=== PATIENT | male | born 1930 | race Caucasian/White ===

== ENCOUNTER → 2018-01-15 | Outpatient (CLI) | payer BC ==
[2015-07-30 16:45] VITALS: BP 110/60
[~2018-01-15] MED LIST: DONE10TA61 PO; MEMA10TA PO; TAMS0.4C97 PO
--- NOTE | 2018-01-15 12:45 | CARD ---
MR#: [id number] Date of Study: 01/15/2018 Ordering Physician: AILYN CASIANO, Referring Physician: AILYN CASIANO, Tech: Moraima Funes APPROVED REPORT EXAM: Two-dimensional and M-mode echocardiogram with Doppler and color Doppler. Other Information Quality : AverageHR: 86bpm INDICATION Murmur Surgery/Intervention Pacemaker: 2D DIMENSIONS RVDd2.2 (2.9-3.5cm)Left Atrium(2D)3.3 (1.6-4.0cm) IVSd1.1 (0.7-1.1cm)Aortic Root(2D)3.4 (2.0-3.7cm) LVDd5.2 (3.9-5.9cm)LVOT Diameter2.1 (1.8-2.4cm) PWd0.9 (0.7-1.1cm)LVDs3.2 (2.5-4.0cm) FS (%) 37.8 %SV85.7 ml Aortic Valve AoV Peak Bashir.198.9cm/sAoV VTI41.2cm AO Peak GR.15.8mmHgLVOT Peak Bashir.95.4cm/s LVOT VTI 23.27cmAO Mean GR.9mmHg MIS (VMAX)1.87wp0BAC (VTI)1.95cm2 Mitral Valve MV E Dpvwmwzj71.8cm/sMV DECEL FRRO480kj MV A Dvewwdiz588.6cm/sMV GXW96fz E/A Ratio0.5MVA (PHT)2.23cm2 TDI E/Lateral E'9.3E/Medial E'11.2 Pulmonary Valve PV Peak Bkxyolfu145.6cm/sPV Peak Grad.9mmHg Tricuspid Valve TR P. Hhbfxjjn382ot/sRAP VQFBSEEL1emFy TR Peak Gr.34viGnXDIP70rnPe Pulmonary Vein S1 Kmwjrxgl17.2cm/sD2 Zcebgevz32.8cm/s LEFT VENTRICLE The left ventricle is normal size. There is borderline concentric left ventricular hypertrophy. The l eft ventricular systolic function is normal and the ejection fraction is within normal range. The Eje ction Fraction is 50-55%. There is normal LV segmental wall motion. Transmitral Doppler flow pattern is Grade I-abnormal relaxation pattern. RIGHT VENTRICLE The right ventricle is borderline dilated. There is normal right ventricular wall thickness. The righ t ventricular systolic function is normal. ATRIA The left atrium size is normal. The right atrium size is normal. The interatrial septum is intact wit h no evidence for an atrial septal defect or patent foramen ovale as noted on 2-D or Doppler imaging. AORTIC VALVE The aortic valve is calcified and displays decreased opening. Doppler and Color Flow revealed trace a ortic regurgitation. There is no significant aortic valvular stenosis. Calculated aortic valve area i s 2 cm2 with maximum pressure gradient of 16 mmHg and mean pressure gradient of 9 mmHg. MITRAL VALVE The mitral valve is mildly thickened. There is no mitral valve stenosis. Doppler and Color-flow revea led trace to mild mitral regurgitation. TRICUSPID VALVE The tricuspid valve is not well visualized. Doppler and Color Flow revealed trace tricuspid regurgita tion. PULMONIC VALVE The pulmonic valve is not well visualized. Doppler and Color Flow revealed trace pulmonic valvular re gurgitation. GREAT VESSELS The aortic root is normal in size. Normal pulmonary venous flow (Doppler). The IVC was not visualized . PERICARDIAL EFFUSION There is no evidence of significant pericardial effusion. Critical Notification Critical Value: No <Conclusion> The left ventricle is normal size. The left ventricular systolic function is normal and the ejection fraction is within normal range. The Ejection Fraction is 50-55%. There is borderline concentric left ventricular hypertrophy. There is no significant aortic valvular stenosis. Calculated aortic valve area is 2 cm2 with maximum pressure gradient of 16 mmHg and mean pressure gra dient of 9 mmHg. Doppler and Color Flow revealed trace aortic regurgitation. Doppler and Color-flow revealed trace to mild mitral regurgitation. Doppler and Color Flow revealed trace tricuspid regurgitation. Signed by : Isidro Carmona MD Electronically Approved : 01/15/2018 12:44:02
== END | disposition home or self-care (01) ==
LOC: ECHO 09:32
PROVIDERS: ATTEND Internal Medicine Cardiovascular Disease
DX: I44.2 Atrioventricular block, complete (principal); I34.0 Nonrheumatic mitral (valve) insufficiency; I51.7 Cardiomegaly
CPT/HCPCS: 93306

== ENCOUNTER 2018-04-17 09:54 | Inpatient (IN) | payer BC ==
[~2018-04-17] VITALS: Ht 170.2 cm; Wt 91.7 kg
[2018-04-17] MEDS ORDERED: IV NORMAL SALINE 1000ML BAG 1,000 ML IV SCH ×2 (10:12→10:30)
--- NOTE | 2018-04-17 10:16 | PHYS DOC ---
Past Medical History Past Medical History: Cancer, Heart Disease, Other Additional Past Medical Histor: colon ca- removedm, alzheimer's Past Surgical History: Colectomy, Pacemaker Alcohol Use: None Drug Use: None Adult General HPI HPI Patient is a 87 year old male who presents to the ED for evaluation. According to EMS, patient has been having decreased mental status, decreased eating and drinking, and episodes of combativeness, over the past 36-48 hours. He has a history of dementia, and at times will be oriented to self, according to family , but he does normally ambulate. Reportedly he had a fall about 36 hours ago, being found by his on the floor in the middle the night, but was helped out back to bed. Yesterday the patient's daughter states his mental status changes became more pronounced, and he was unable to get out of bed this morning. The patient himself is unable to provide any meaningful history. There are no known alleviating or exacerbating factors to the patient's symptoms. Review of Systems Review of Systems Unable to obtain review of systems secondary to dementia and altered mental status Current Medications Current Medications Current Medications Medications (Trade) Dose Ordered Sig/Sunita Start Time Stop Time Status Last Admin Dose Admin Ceftriaxone Sodium (Rocephin) 1 gm 1X ONCE 04/17/18 11:30 04/17/18 11:31 DC 04/17/18 11:46 1 GM Sodium Chloride 1,000 ml @ 100 mls/hr Q10H 04/17/18 10:30 04/17/18 20:29 Allergies Allergies Allergies Coded Allergies Type Severity Reaction Last Updated Verified No Known Drug Allergies 08/18/14 No Physical Exam Physical Exam PHYSICAL EXAM: CONSTITUTIONAL: Well developed, well nourished HEAD: normocephalic, atraumatic EENT: PERRL, EOMI. Conjunctivae normal color, sclerae non-icteric; dry mucous membranes. NECK: Supple, non-tender; no meningismus. LUNGS: Lungs CTA, breathing even and unlabored. Normal air movement. HEART: Regular rate and rhythm, no murmur CHEST: No deformity; non-tender ABDOMEN: The abdomen is soft, and non-tender, no masses or bruits. EXTREM: Normal ROM; no deformity, no calf tenderness. Normal pulses palpable in all extremities. There is no pedal edema. SKIN: No rash; no diaphoresis NEURO: Patient is awake, moves all extremities, does not answer questions normally, no obvious sensory or motor deficit. The patient does exhibit impaired cognition consistent with a history of dementia. BACK: No CVA TTP. Current Patient Data Vital Signs Vital Signs Date Time Temp Pulse Resp B/P (MAP) Pulse Ox O2 Delivery O2 Flow Rate FiO2 04/17/18 11:02 68 13 96 04/17/18 09:54 97.7 124/61 (82) Room Air 97.7 Lab Values Laboratory Tests Test 04/17/18 10:19 04/17/18 10:37 White Blood Count 9.7 x10^3/uL (4.0-11.0) Red Blood Count 4.78 x10^6/uL (4.30-5.70) Hemoglobin 14.9 g/dL (13.0-17.5) Hematocrit 44.6 % (39.0-53.0) Mean Corpuscular Volume 93 fL (79-100) Mean Corpuscular Hemoglobin 31 pg (25-35) Mean Corpuscular Hemoglobin Concent 33 g/dL (31-37) Red Cell Distribution Width 14.5 % (11.5-14.5) Platelet Count 245 x10^3/uL (140-400) Neutrophils (%) (Auto) 76 % (31-73) H Lymphocytes (%) (Auto) 14 % (24-48) L Monocytes (%) (Auto) 10 % (0-9) H Eosinophils (%) (Auto) 0 % (0-3) Basophils (%) (Auto) 0 % (0-3) Neutrophils # (Auto) 7.4 x10^3uL (1.8-7.7) Lymphocytes # (Auto) 1.3 x10^3/uL (1.0-4.8) Monocytes # (Auto) 0.9 x10^3/uL (0.0-1.1) Eosinophils # (Auto) 0.0 x10^3/uL (0.0-0.7) Basophils # (Auto) 0.0 x10^3/uL (0.0-0.2) Sodium Level 142 mmol/L (136-145) Potassium Level 4.3 mmol/L (3.5-5.1) Chloride Level 103 mmol/L (98-107) Carbon Dioxide Level 29 mmol/L (21-32) Anion Gap 10 (6-14) Blood Urea Nitrogen 33 mg/dL (8-26) H Creatinine 1.9 mg/dL (0.7-1.3) H Estimated GFR (Cockcroft-Gault) 33.7 BUN/Creatinine Ratio 17 (6-20) Glucose Level 131 mg/dL (70-99) H Calcium Level 9.9 mg/dL (8.5-10.1) Magnesium Level 2.5 mg/dL (1.8-2.4) H Total Bilirubin 0.8 mg/dL (0.2-1.0) Aspartate Amino Transferase (AST) 52 U/L (15-37) H Alanine Aminotransferase (ALT) 36 U/L (16-63) Alkaline Phosphatase 92 U/L (46-116) Troponin I Quantitative < 0.017 ng/mL (0.000-0.055) YX-Khl-Y-Type Natriuretic Peptide 1355 pg/mL (0-449) H Total Protein 8.7 g/dL (6.4-8.2) H Albumin 3.4 g/dL (3.4-5.0) Albumin/Globulin Ratio 0.6 (1.0-1.7) L Thyroid Stimulating Hormone (TSH) 4.703 uIU/mL (0.358-3.74) H Free Thyroxine 1.16 ng/dL (0.76-1.46) Urine Collection Type U cath Urine Color Yellow Urine Clarity Cloudy Urine pH 5.5 Urine Specific [place] 1.020 Urine Protein 30 mg/dL (NEG-TRACE) Urine Glucose (UA) Negative mg/dL (NEG) Urine Ketones (Stick) Negative mg/dL (NEG) Urine Blood Large (NEG) Urine Nitrite Negative (NEG) Urine Bilirubin Negative (NEG) Urine Urobilinogen Dipstick 0.2 mg/dL (0.2 mg/dL) Urine Leukocyte Esterase Large (NEG) Urine RBC 3-5 /HPF (0-2) Urine WBC >40 /HPF (0-4) Urine Squamous Epithelial Cells Few /LPF Urine Bacteria Many /HPF (0-FEW) Laboratory Tests 04/17/18 10:19 Laboratory Tests 04/17/18 10:19 EKG EKG [Normal sinus rhythm a rate of 64 beats for minute, normal axis, nonspecific intraventricular conduction delay with an incomplete left bundle branch block pattern without acute ischemic ST/T changes. Nonspecific changes are present] Radiology/Procedures Radiology/Procedures [PROCEDURE: PORTABLE CHEST 1V EXAM: CHEST 1 VIEW History: Altered mental status COMPARISON: 07/30/2015 TECHNIQUE: Single portable radiograph of the chest FINDINGS: The cardiac silhouette is unremarkable. The lungs are clear bilaterally. The costophrenic sulci are clear and well demarcated. Left sided cardiac pacer is identified. IMPRESSION: No radiographic evidence of an acute cardiopulmonary process. ] PROCEDURE: CT HEAD WO CONTRAST CT HEAD INDICATION: Altered mental status COMPARISON: None Available. Exposure: One or more of the following individualized dose reduction techniques were utilized for this examination: 1. Automated exposure control 2. Adjustment of the mA and/or kV according to patient size 3. Use of iterative reconstruction technique TECHNIQUE: 5 mm contiguous axial images were obtained from the skull base to the vertex in both bone and soft tissue algorithm. FINDINGS: Moderate bilateral periventricular white matter hypodensities likely chronic small vessel ischemic disease. No evidence of acute intracranial hemorrhage. No extra-axial fluid collections. No mass effect or midline shift. Ventricular size is appropriate. Basal cisterns are patent. No fractures identified.Altamirano-white differentiation is preserved.Globes and orbits are within normal limits. Complete opacification of the right mastoid air cells. IMPRESSION: 1. No acute intracranial findings. 2. Complete opacification of the right mastoid air cells could be fluid in the mastoid air cells are due to otitis media or noncoalescent mastoiditis. Course & Med Decision Making Course & Med Decision Making Pertinent Labs and Imaging studies reviewed. (See chart for details) [12:00 PM:The patient's condition remains stable. I spoke with the patient's PCP, who accepted the patient to the hospital for further evaluation and treatment.] Dragon Disclaimer Dragon Disclaimer This electronic medical record was generated, in whole or in part, using a voice recognition dictation system. Departure Departure Impression: Primary Impression: Altered mental status Additional Impressions: Dehydration UTI (urinary tract infection) Disposition: ADMITTED INPATIENT Admitting Physician: Swapnil Rosales Condition: STABLE Referrals: SWAPNIL ROSALES MD (PCP) Problem Qualifiers LEILANI VASQUEZ MD Apr 17, 2018 10:16
[2018-04-17 10:40] LABS: BASO % 0 % (0-3); EOS % 0 % (0-3); HEMATOCRIT 44.6 % (39.0-53.0); HEMOGLOBIN 14.9 g/dL (13.0-17.5); LYMPH # 1.3 x10^3/uL (1.0-4.8); LYMPH % 14 % (24-48); MEAN CORPUSCULAR HEMOGLOBIN 31 pg (25-35); MEAN CORPUSCULAR HGB CONC 33 g/dL (31-37); MEAN CORPUSCULAR VOLUME 93 fL (79-100); MONO # 0.9 x10^3/uL (0.0-1.1); MONO % 10 % (0-9); NEUT # 7.4 x10^3uL (1.8-7.7); NEUT % 76 % (31-73); PLATELET COUNT 245 x10^3/uL (140-400); RED BLOOD COUNT 4.78 x10^6/uL (4.30-5.70); RED CELL DISTRIBUTION WIDTH 14.5 % (11.5-14.5); WHITE BLOOD COUNT 9.7 x10^3/uL (4.0-11.0)
--- NOTE | 2018-04-17 10:43 | RAD ---
EXAM: CHEST 1 VIEW History: Altered mental status COMPARISON: 07/30/2015 TECHNIQUE: Single portable radiograph of the chest FINDINGS: The cardiac silhouette is unremarkable. The lungs are clear bilaterally. The costophrenic sulci are clear and well demarcated. Left sided cardiac pacer is identified. IMPRESSION: No radiographic evidence of an acute cardiopulmonary process. Electronically signed by: Italo Conteh MD (04/17/2018 10:38 AM) [facility]
[2018-04-17 10:44] LABS: CALCIUM 9.9 mg/dL (8.5-10.1); CREATININE 1.9 mg/dL (0.7-1.3); GFR 33.7; POTASSIUM 4.3 mmol/L (3.5-5.1)
[2018-04-17 10:48] LABS: BILIRUBIN,URINE NEGATIVE (NEG); CLARITY,URINE CLOUDY; COLOR,URINE YELLOW; NITRITE,URINE NEGATIVE (NEG); PH,URINE 5.5; PROTEIN,URINE 30 mg/dL (NEG-TRACE); UROBILINOGEN,URINE 0.2 mg/dL (0.2 mg/dL)
[2018-04-17 10:49] LABS: ALBUMIN 3.4 g/dL (3.4-5.0); ALBUMIN/GLOBULIN RATIO 0.6 (1.0-1.7); MAGNESIUM 2.5 mg/dL (1.8-2.4); TOTAL BILIRUBIN 0.8 mg/dL (0.2-1.0); TOTAL PROTEIN 8.7 g/dL (6.4-8.2)
[2018-04-17 10:57] LABS: FREE T4 1.16 ng/dL (0.76-1.46); THYROID STIM HORMONE (TSH) 4.703 uIU/mL (0.358-3.74)
--- NOTE | 2018-04-17 11:02 | RAD ---
CT HEAD INDICATION: Altered mental status COMPARISON: None Available. Exposure: One or more of the following individualized dose reduction techniques were utilized for this examination: 1. Automated exposure control 2. Adjustment of the mA and/or kV according to patient size 3. Use of iterative reconstruction technique TECHNIQUE: 5 mm contiguous axial images were obtained from the skull base to the vertex in both bone and soft tissue algorithm. FINDINGS: Moderate bilateral periventricular white matter hypodensities likely chronic small vessel ischemic disease. No evidence of acute intracranial hemorrhage. No extra-axial fluid collections. No mass effect or midline shift. Ventricular size is appropriate. Basal cisterns are patent. No fractures identified.Altamirano-white differentiation is preserved.Globes and orbits are within normal limits. Complete opacification of the right mastoid air cells. IMPRESSION: 1. No acute intracranial findings. 2. Complete opacification of the right mastoid air cells could be fluid in the mastoid air cells are due to otitis media or noncoalescent mastoiditis. Electronically signed by: Italo Conteh MD (04/17/2018 10:57 AM) [facility]
[2018-04-17 11:04] LABS: SQUAMOUS EPITHELIAL CELL,UR FEW /LPF
[2018-04-17 11:05] LABS: BACTERIA,URINE MANY /HPF (0-FEW); WBC,URINE >40 /HPF (0-4)
--- NOTE | 2018-04-17 11:05 | EKG ---
[facility] [address] [place] [address] Test Date: 2018-04-17 Test Time: 10:15:25 Pat Name: CAROL VAN Department: Room: Gender: M Criminal Profiler: : [id number] Requested By: LEILANI VASQUEZ Order Number: [id number] Reading MD: Davy Yost MD Measurements Intervals [place] Rate: 64 P: 63 MN: 182 QRS: 30 QRSD: 128 T: 5 QT: 424 QTc: 442 Interpretive Statements SINUS RHYTHM LBBB CANNOT RULE OUT SEPTAL INFARCT Electronically Signed On 04-18-2018 9:16:36 [employer] by Davy Yost MD
[2018-04-17] MEDS ORDERED: cefTRIAXone IV Push 1 GM VIAL. IVP ONE (11:30)
[2018-04-17] MEDS ORDERED: POTASSIUM CL 20MEQ D5-0.45NACL 1,000 ML IV ONE (12:15)
[2018-04-17 14:07] VITALS: BP 113/55
[2018-04-17] MEDS ORDERED: HALOPERIDOL 2 MG TABLET. PO PRN (17:45)
[2018-04-17] MEDS: ENOXAPARIN 30 MG/0.3 ML SYRINGE. SQ SCH (18:00)
[2018-04-17] MEDS ORDERED: cefTRIAXone IV Push 1 GM VIAL. IVP SCH ×2 (18:00)
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
[2018-04-17 19:00] VITALS: BP 108/59
[2018-04-17] MEDS: TAMSULOSIN 0.4 MG CAP.ER.24H. PO SCH (20:39)
[2018-04-17] MEDS: MEMANTINE 10 MG TABLET. PO SCH (20:39)
[2018-04-17] MEDS: DONEPEZIL HCL 10 MG TABLET. PO SCH (20:39)
[2018-04-17] MEDS: LACTOBACILLUS RHAMNOSUS GG 1 CAPSULE. PO SCH (20:39)
[2018-04-17 22:49] VITALS: BP 114/55
[2018-04-18 03:41] VITALS: BP 123/48
[2018-04-18 05:05] LABS: BASO % 0 % (0-3); EOS # 0.2 x10^3/uL (0.0-0.7); EOS % 2 % (0-3); HEMATOCRIT 37.4 % (39.0-53.0); HEMOGLOBIN 12.5 g/dL (13.0-17.5); LYMPH # 2.4 x10^3/uL (1.0-4.8); LYMPH % 26 % (24-48); MEAN CORPUSCULAR HEMOGLOBIN 31 pg (25-35); MEAN CORPUSCULAR HGB CONC 34 g/dL (31-37); MEAN CORPUSCULAR VOLUME 93 fL (79-100); MONO # 1.3 x10^3/uL (0.0-1.1); MONO % 15 % (0-9); NEUT # 5.2 x10^3uL (1.8-7.7); NEUT % 57 % (31-73); PLATELET COUNT 214 x10^3/uL (140-400); RED BLOOD COUNT 4.04 x10^6/uL (4.30-5.70); RED CELL DISTRIBUTION WIDTH 13.9 % (11.5-14.5); WHITE BLOOD COUNT 9.1 x10^3/uL (4.0-11.0)
[2018-04-18 05:32] LABS: CREATININE 1.5 mg/dL (0.7-1.3); GFR 44.3; POTASSIUM 3.7 mmol/L (3.5-5.1)
[2018-04-18] MEDS: LEVOTHYROXINE 25 MCG TABLET. PO SCH (06:27)
[2018-04-18] MEDS ORDERED: IV NORMAL SALINE 1000ML BAG 1,000 ML IV ONE (07:45)
[2018-04-18] MEDS: MEMANTINE 10 MG TABLET. PO SCH ×2 (08:20→20:56)
[2018-04-18] MEDS: DONEPEZIL HCL 10 MG TABLET. PO SCH ×2 (08:20→20:57)
[2018-04-18] MEDS: LACTOBACILLUS RHAMNOSUS GG 1 CAPSULE. PO SCH ×3 (08:20→20:57)
[2018-04-18] MEDS: FINASTERIDE 5 MG TABLET. PO SCH (08:20)
[2018-04-18 10:58] VITALS: BP 117/58
[2018-04-18] MEDS ORDERED: cefTRIAXone IV Push 1 GM VIAL. IVP SCH (12:00)
--- NOTE | 2018-04-18 12:59 | HP ---
ADMIT DATE: 04/17/2018 CHIEF COMPLAINT: Mental status changes. HISTORY OF PRESENT ILLNESS AND HOSPITAL COURSE: This patient is an 87-year-old male with known Alzheimer type dementia, became increasingly agitated at home and combative. EMS was called and the patient was brought to Emergency Room for evaluation. He was found to have a UTI and evidence of dehydration. The patient was unable to care for himself and due to the severity of illness, he was admitted for further evaluation, PT and OT modalities, IV fluids and IV antibiotics. PAST MEDICAL HISTORY: Significant for: 1. Alzheimer type dementia. 2. Hypothyroidism. 3. Sick sinus syndrome with pacer. 4. Benign prostatic hypertrophy. PAST SURGICAL HISTORY: Significant for: 1. Partial colectomy. 2. Pacemaker insertion. FAMILY HISTORY: Noncontributory. SOCIAL HISTORY: The patient does not smoke or use alcohol. He lives with his who has been the caregiver and who has recently had a CVA decreasing her abilities to care for the patient. REVIEW OF SYSTEMS: The patient has lost weight, but has not had any cough, congestion, fever, vomiting or diarrhea. The patient denies any pain. The patient is alert, but not oriented to time or place. The patient mumbles and is unable to assist in care. PHYSICAL EXAMINATION: GENERAL: This is a well-nourished, well-developed male, in no apparent distress. He is alert, but not oriented to time or place. HEENT: Benign. NECK: Supple. CARDIAC: Regular rate and rhythm. LUNGS: Clear. ABDOMEN: Soft, although the patient exhibits some evidence of tenderness and guarding. Positive bowel sounds were noted. EXTREMITIES: 2+ pulse without significant edema. NEUROLOGIC: Showed no unilateral findings. MENTAL STATUS EXAMINATION: Again, he is somewhat combative and resistant to care. SIGNIFICANT LABORATORY DATA: Reveals BUN 33 and a creatinine of 1.9 with baseline creatinine of 1.5. No elevated white count was noted. Urine did show large blood and leukocytes, but negative nitrites. Culture was reflexed. TSH was elevated to 4.7, but free T4 was normal at 1.6. ASSESSMENT: 1. Metabolic encephalopathy. 2. Suspected sepsis. 3. Urinary tract infection. 4. Alzheimer type dementia. 5. Acute on chronic renal failure. 6. Hypothyroidism. PLAN: To proceed with PT and OT modalities, IV hydration and IV switching to p.o. antibiotics. We will consider [facility] consult once the patient is medically stable and proceed with SNU care or alf placement pending the patient's disposition. DANILO PAPPAS MD DR: MALLORY/sandra JOB#: [id number] / [id number]
[2018-04-18 15:06] VITALS: BP 147/54
--- NOTE | 2018-04-18 16:04 | NUR ---
SW consulted for [facility] psych evaluation. Chart reviewed and DW RN. Pt currently being treated for UTI. SW spoke with pt's son, Jose D via phone and he reported pt is usually fine at home and only gets upset if 'he is forced to do something he doesn't want to do'. Pt lives at home with spouse and gets home care services at home. SW discussed about [facility] psych evaluation with son. Pt has declined to participate with PT/OT today but has been stand by assist with ambulation. YONATAN requested RN to document behaviors in EMR to assist with [facility]-psych evaluation. Referral to [facility] psych faxed to [facility] but will need to be cleared of UTI to qualify for evaluation. YONATAN left a voice mail to Nannette at [facility] luly psych. YONATAN will continue to follow.
[2018-04-18] MEDS: ENOXAPARIN 30 MG/0.3 ML SYRINGE. SQ SCH (18:00)
[2018-04-18 20:00] VITALS: BP 137/58
[2018-04-18] MEDS: TAMSULOSIN 0.4 MG CAP.ER.24H. PO SCH (20:57)
[2018-04-18 23:00] VITALS: BP 135/66
--- NOTE | 2018-04-18 23:37 | RAD ---
Ultrasound the abdomen complete. HISTORY: Altered mental status, combative, unable to give history Ultrasound was used to evaluate the abdomen. Pancreas is obscured. Aorta and vena cava cava are poorly visualized. Liver is mildly heterogeneous but poorly visualized, an obvious liver lesion was not identified. Right kidney was 10.4 cm in length without hydronephrosis. There is a gallstone in the gallbladder. The gallbladder wall was not thickened. Common duct was normal measuring 3 mm. Spleen was not enlarged. Left kidney was 11.4 cm in length without hydronephrosis. IMPRESSION: 1. Limited study. 2. Cholelithiasis. Electronically signed by: Donaldo Cortés MD (04/18/2018 11:33 PM) [facility]
[2018-04-19 02:27] VITALS: BP 122/60
--- NOTE | 2018-04-19 06:30 | NUR ---
Patient up to bathroom with assistance at this time. Patient had been able to be redirected throughout shift until this encounter to bathroom. Patient became very agitated with staff, became verbally inappropriate. Aide and this nurse attempted to redirect patient to best of our ability, patient still very agitated. Son Jose D called, patient refused to speak to him, son offered to come up to hospital to help calm him down. Patient attempted to leave room, took three nurses to redirect patient back to bed. Patient not allowing anyone near him. This nurse called pharmacy to get Haldol up to floor. Haldol received. Patient refusing to take medication. Son in room attempting to calm patient down. Patient refusing to take medication. Patient in chair with staff in room. Will continue to monitor patient.
[2018-04-19] MEDS ORDERED: HALOPERIDOL 2 MG/ML ORAL.CONC. PO PRN (06:36)
[2018-04-19 07:36] VITALS: BP 135/68
[2018-04-19] MEDS: FINASTERIDE 5 MG TABLET. PO SCH (07:54)
[2018-04-19] MEDS: MEMANTINE 10 MG TABLET. PO SCH ×2 (07:54→21:00)
[2018-04-19] MEDS: LEVOTHYROXINE 25 MCG TABLET. PO SCH (07:54)
[2018-04-19] MEDS: LACTOBACILLUS RHAMNOSUS GG 1 CAPSULE. PO SCH ×2 (07:54→21:00)
[2018-04-19] MEDS: DONEPEZIL HCL 10 MG TABLET. PO SCH ×2 (07:56→21:00)
[2018-04-19 11:10] VITALS: BP 110/50
--- NOTE | 2018-04-19 11:13 | NUR ---
SW following pt. Spoke with Nannette at [facility] and she reported pt has $4400 deductible that is not met yet. This deductible might be met with this hospital admission. Nannette reported UTI dx will not affect derek psych eval. YONATAN faxed labs and more clinicals to [facility]. They are able to accept pt as long as family can bring DPOA paper. Spoke with pt's daughter who reported she will bring DPOA paper around 1200. Nannette also reported pt's date was coming as invalid when she run his insurance benefits. Daughter reported [employer] has pt's date as 1930. YONATAN notified Nannette at [facility] regarding date. YONATAN will continue to follow. Addendum: 04/19/18 at 1402 by DIANNA TAM YONATAN following. RN spoke with pt's daughter who reported they will be at [facility] 'hopefully with in an hour'. YONATAN phoned and faxed orders to [facility] derek-psych. Will continue to follow.
[2018-04-19] MEDS ORDERED: FINA5TAB4 PO (13:04)
[2018-04-19] MEDS ORDERED: LEVO250T7 PO (13:04)
[2018-04-19] MEDS ORDERED: LEVO25TA55 PO (13:04)
--- NOTE | 2018-04-19 13:11 | DISCH ---
DISCHARGE DISCHARGE INFORMATION: FINAL DIAGNOSIS Problems Medical Problems: (1) Altered mental status Status: Acute (2) Dehydration Status: Acute (3) UTI (urinary tract infection) Status: Acute CONDITION ON DISCHARGE: Stable CODE STATUS: Code Status: Full POST DISCHARGE ORDERS: ACTIVITY ORDERS: No restrictions, Other, see below WEIGHT BEARING STATUS: No restrictions, Other, see below DIET AFTER DISCHARGE: Regular WOUND/INCISION CARE: Other, see below TREATMENT/EQUIPMENT ORDERS: Physical Therapy For: Evalulation/Treatment Occupational Therapy For: Evaluation/Treatment DISCHARGE MEDICATIONS: Home Meds Active Scripts Finasteride (FINASTERIDE) 5 Mg Tablet, 5 MG PO DAILY for bph for 30 Days, #30 TAB Prov:DANILO PAPPAS MD 04/19/18 Levothyroxine Sodium (SYNTHROID) 25 Mcg Tablet, 25 MCG PO DAILY06 for low thyroid for 30 Days, #30 TAB Prov:DANILO PAPPAS MD 04/19/18 Levofloxacin (LEVOFLOXACIN) 250 Mg Tablet, 250 MG PO DAILY06 for uti for 7 Days , #7 TAB Prov:DANILO PAPPAS MD 04/19/18 Tamsulosin Hcl (FLOMAX) 0.4 Mg Cap.er.24h, 0.4 MG PO QHS, #30 TAB Prov:DANILO PAPPAS MD 08/20/14 Reported Medications Donepezil Hcl (ARICEPT) 10 Mg Tablet, 1 TAB PO BID, #30 TAB 5 Refills 08/18/14 Memantine Hcl (NAMENDA) 10 Mg Tablet, 1 TAB PO BID, #180 TAB 1 Refill 08/18/14 DANILO PAPPAS MD Apr 19, 2018 13:11
--- NOTE | 2018-04-19 13:26 | DS ---
DATE OF DISCHARGE: 04/19/2018 ADMITTING DIAGNOSES: 1. Metabolic encephalopathy. 2. Urinary tract infection. 3. Alzheimer's type dementia with psychotic features. 4. Acute on chronic renal failure. 5. Suspected sepsis. 6. Hypothyroidism. DISMISSAL DIAGNOSES: 1. Metabolic encephalopathy. 2. Urinary tract infection. 3. Alzheimer's type dementia with psychotic features. 4. Acute on chronic renal failure. 5. Suspected sepsis. 6. Hypothyroidism. HISTORY OF PRESENT ILLNESS AND HOSPITAL COURSE: This patient is an 87-year-old male who came in with altered mental status and progressive Alzheimer's type dementia. He was difficult to control at home and agitated and brought to the hospital where he was found to have a UTI and evidence of dehydration. He was treated with IV fluids initially, but refused further IV hydration and IV access due to combativeness. He was started on p.o. antibiotics and stabilized to the point where he was able to tolerate diet and be back to baseline, but continued to have agitation and poor impulse control. Due to these factors, Geriatric Psych was consulted and the patient was accepted [facility] admission. DISCHARGE MEDICATIONS: The patient will be discharged to [facility] on the following medications: Levaquin 250 mg daily for 1 week, levothyroxine 25 mcg daily, finasteride 5 mg daily, Aricept 10 mg daily, Namenda 10 mg b.i.d. and tamsulosin 0.4 at bedtime. DANILO PAPPAS MD DR: MALLORY/sandra JOB#: [id number] / [id number]
--- NOTE | 2018-04-19 14:23 | NUR ---
SW following pt. Spoke with pt's son and informed him there is dc order on chart and we need DPOA paper for [facility] psych placement. Pt's son reported he will try to bring paperwork to hospital or try to fax to YONATAN. ROXANA Paulson to check if we have paperwork on file.
[2018-04-19 15:00] VITALS: BP 125/67
--- NOTE | 2018-04-19 15:00 | NUR ---
SW following. YONATAN faxed DPOA paper to [facility]
--- NOTE | 2018-04-19 15:56 | NUR ---
YONATAN spoke with Nannette at [facility] who reported pt's DPOA paper states it can only be effective after pt's disability is established by two Physicians. RN to notify Physician regarding request. These statements can be written as a progress note in EMR (Pt is incapable making decisions and I agree with Power of payroll services analyst to be effective) and can be faxed to [facility] derek psych, fax: [phone]. [facility] is able to admit pt tomorrow if these papers are faxed to them. Report number, phone: [phone]. Pt's is also the appointed DPOA once it becomes effective. Discussed with pt's daughter, son and pt's in room regarding plan and they verbalized understanding. YONATAN also has discussed deductibles with pt's daughter. Copy of DPOA paper placed in chart. Packet on chart. Discussed with RN.
--- NOTE | 2018-04-19 16:05 | PDOC ---
Provider Note Provider Note To whom it may concern: Mr. Hernan Allen has been under my care for over 10 years. He is no longer able to manage his own affairs due to progressive Alzheimer's dementia and will require a DPOA for medical and financial decision-making. Please make DPOA effective immediately. Sincerely, DANILO Cueva M.D., MD Apr 19, 2018 16:04
[2018-04-19] MEDS: ENOXAPARIN 30 MG/0.3 ML SYRINGE. SQ SCH (17:32)
[2018-04-19 19:00] VITALS: BP 141/82
[2018-04-19] MEDS: TAMSULOSIN 0.4 MG CAP.ER.24H. PO SCH (21:00)
[2018-04-19] MEDS: MELATONIN PO SCH (22:35)
[2018-04-19 23:00] VITALS: BP 104/63
[2018-04-19] MEDS: HALOPERIDOL LACTATE 5 MG/ML VIAL. IM PRN (23:21)
[2018-04-20 07:00] VITALS: BP 100/50
--- NOTE | 2018-04-20 09:51 | PDOC ---
PROGRESS NOTES Subjective sleeping, sedated, comfortable, sitter present, no new issues Objective Afebrile General: comfortable Heart: RRR Lungs: CTA Abd: soft Ext: no cyanosis Vital Signs Vital Signs Date Time Temp Pulse Resp B/P (MAP) Pulse Ox O2 Delivery O2 Flow Rate FiO2 04/20/18 07:00 77 16 100/50 (67) Room Air 04/19/18 23:00 95 04/19/18 15:00 97.8 97.8 I & O Intake and Output 04/20/18 07:01 # Voids 6 # Bowel Movements 1 Assessment and Plan Problems Medical Problems: (1) Altered mental status Status: Acute (2) Dehydration Status: Acute (3) UTI (urinary tract infection) Status: Acute Mr. Hernan Allen has been a patient of Dr. Rosales's and myself medical practice for over 10 years. He is no longer able to manage his own affairs due to progressive Alzheimer's dementia and immediately needs a DPOA for medical and financial decision-making. Nutrition Consultation Dietary Evaluation: Recommendations by RD: Increase Calorie Intake, Protein supplementation, Add supplement feedings Comments: Added chocolate Ensure pudding TID due to poor P.O intake, in order to increase calorie and protein intake. Expected Outcomes/Goals: Continue Cardiac diet P.O. intake >75% Malnutrition Findings: Food and Nutrition Intake (Sev: <50% est energy req 5days Weight Status: Obese Yessy ALCARAZ MD Apr 20, 2018 09:51
[2018-04-20 11:00] VITALS: BP 130/55
[2018-04-20] MEDS: MEMANTINE 10 MG TABLET. PO SCH ×2 (12:06→21:02)
[2018-04-20] MEDS: FINASTERIDE 5 MG TABLET. PO SCH (12:06)
[2018-04-20] MEDS: DONEPEZIL HCL 10 MG TABLET. PO SCH ×2 (12:06→21:10)
[2018-04-20] MEDS: LACTOBACILLUS RHAMNOSUS GG 1 CAPSULE. PO SCH ×2 (12:06→21:02)
[2018-04-20] MEDS: LEVOTHYROXINE 25 MCG TABLET. PO SCH (12:07)
[2018-04-20 15:00] VITALS: BP 100/47
--- NOTE | 2018-04-20 15:52 | NUR ---
[place] [facility] [place] [facility], as per YONATAN two doctors documented in EMR the incapability of patient to make decisions, I faxed documentation as well. Per Dora charge nurse at the [facility], documentation needs to either be typed or handwritten with 's signatures, one letter from each physician. They can not accept him until they receive them, will follow up with during rounds in the AM.
[2018-04-20] MEDS: ENOXAPARIN 30 MG/0.3 ML SYRINGE. SQ SCH (18:00)
[2018-04-20 19:00] VITALS: BP 97/53
[2018-04-20] MEDS: MELATONIN PO SCH (21:04)
[2018-04-20] MEDS: TAMSULOSIN 0.4 MG CAP.ER.24H. PO SCH (21:10)
[2018-04-20 23:00] VITALS: BP 104/48
[2018-04-21 03:00] VITALS: BP 123/52
[2018-04-21 07:02] VITALS: BP 144/65
[2018-04-21] MEDS: FINASTERIDE 5 MG TABLET. PO SCH (10:35)
[2018-04-21] MEDS: LEVOTHYROXINE 25 MCG TABLET. PO SCH (10:35)
[2018-04-21] MEDS: MEMANTINE 10 MG TABLET. PO SCH ×2 (10:35→19:56)
[2018-04-21] MEDS: DONEPEZIL HCL 10 MG TABLET. PO SCH ×2 (10:35→19:56)
[2018-04-21] MEDS: LACTOBACILLUS RHAMNOSUS GG 1 CAPSULE. PO SCH ×2 (10:36→19:56)
[2018-04-21 11:52] VITALS: BP 104/60
--- NOTE | 2018-04-21 13:21 | PDOC ---
PROGRESS NOTES Subjective He needs written note with original signature for transfer, no new issues, appetite poor but drinking some supplements, still does not like being touched, was able to ambulate some this am but mostly sleeps Objective Afebrile General: easily aroused Heart: RRR Lungs: diminished but clear Abd: soft, non distended Ext: no cyanosis, skin with good turgor, warm Vital Signs Vital Signs Date Time Temp Pulse Resp B/P (MAP) Pulse Ox O2 Delivery O2 Flow Rate FiO2 04/21/18 11:52 98.0 71 17 104/60 (75) 99 Room Air 98.0 I & O Intake and Output 04/21/18 07:01 Intake Total 1205 ml Balance 1205 ml Intake Oral 1205 ml # Voids 6 # Bowel Movements 3 Assessment and Plan Problems Medical Problems: (1) Altered mental status Status: Acute (2) Dehydration Status: Acute (3) UTI (urinary tract infection) Status: Acute Note written and signed Nutrition Consultation Dietary Evaluation: Recommendations by RD: Increase Calorie Intake, Protein supplementation, Add supplement feedings Comments: Added chocolate Ensure pudding TID due to poor P.O intake, in order to increase calorie and protein intake. Expected Outcomes/Goals: Continue Cardiac diet P.O. intake >75% Malnutrition Findings: Food and Nutrition Intake (Sev: <50% est energy req 5days Weight Status: Obese Yessy ALCARAZ MD Apr 21, 2018 13:21
[2018-04-21 15:40] VITALS: BP 118/50
[2018-04-21] MEDS: ENOXAPARIN 30 MG/0.3 ML SYRINGE. SQ SCH (17:20)
[2018-04-21 19:00] VITALS: BP 108/66
[2018-04-21] MEDS: MELATONIN PO SCH (19:56)
[2018-04-21] MEDS: TAMSULOSIN 0.4 MG CAP.ER.24H. PO SCH (19:56)
[2018-04-21 23:00] VITALS: BP 143/70
[2018-04-22] MEDS: HALOPERIDOL LACTATE 5 MG/ML VIAL. IM PRN (00:18)
[2018-04-22] MEDS: LEVOTHYROXINE 25 MCG TABLET. PO SCH (06:00)
[2018-04-22 07:00] VITALS: BP 117/44
--- NOTE | 2018-04-22 08:22 | NUR ---
YONATAN following pt. YONATAN left a message for Nannette at [facility] requesting a call back. FERNIE MUNOZ.
[2018-04-22] MEDS: DONEPEZIL HCL 10 MG TABLET. PO SCH (09:00)
[2018-04-22] MEDS: LACTOBACILLUS RHAMNOSUS GG 1 CAPSULE. PO SCH (09:00)
[2018-04-22] MEDS: MEMANTINE 10 MG TABLET. PO SCH (09:00)
[2018-04-22] MEDS: FINASTERIDE 5 MG TABLET. PO SCH (09:00)
--- NOTE | 2018-04-22 10:13 | NUR ---
YONATAN following pt. Spoke with Nannette who reported EMR documentation regarding pt's incapability would be sufficient but she would verify that as well. YONATAN faxed Documentation and signed Rx by Dr. Givens requesting for DPOA to be effective to [facility]. Awaiting for Rx from pt's PCP but Nannette reported they are able to admit pt today. Nannette had gone over the consent forms with pt's via phone. Pt will transfer to [facility] via [facility] at 1200. SW notified pt's daughter and son via phone and they are agreeable. They reported they will notify pt's regarding plan. Packet on Chart. FERNIE MUNOZ.
--- NOTE | 2018-04-22 13:21 | NUR ---
Discharge Note: [facility] Discharge instructions and discharge home medications reviewed with Other facility and a copy given. All questions have been answered and understanding verbalized. Discontinued lines and drains: No IV was present on discharge, skin was intact. Patient discharged to [facility] via EMS
== END 2018-04-22 13:00 | DRG 871 ==
LOC: ER 09:54 → 6 SOUTH 11:25
PROVIDERS: ADMIT Family Medicine; ATTEND Family Medicine
DX: A41.9 Sepsis, unspecified organism (principal); G93.41 Metabolic encephalopathy; N17.9 Acute kidney failure, unspecified; N39.0 Urinary tract infection, site not specified; E46 Unspecified protein-calorie malnutrition; E86.0 Dehydration; F02.80 Dementia in other diseases classified elsewhere, unspecified severity, without behavioral disturbance, psychotic disturbance, mood disturbance, and anxiety; G30.9 Alzheimer's disease, unspecified; N40.0 Benign prostatic hyperplasia without lower urinary tract symptoms; N18.9 Chronic kidney disease, unspecified; E03.9 Hypothyroidism, unspecified; E66.9 Obesity, unspecified; Z85.038 Personal history of other malignant neoplasm of large intestine; Z86.73 Personal history of transient ischemic attack (TIA), and cerebral infarction without residual deficits; Z95.0 Presence of cardiac pacemaker; Z68.31 Body mass index [BMI] 31.0-31.9, adult; Z90.49 Acquired absence of other specified parts of digestive tract
CPT/HCPCS: 36415; 51701; 70450; 71045; 76700; 80048; 80053; 81001; 83735; 83880; 84439; 84443; 84484; 85025; 87086; 87186; 93005; 96361; 96365; 96375; J0696; J1630; J7030; 99285-25

== ENCOUNTER 2018-05-14 03:29 | Emergency (ER) | payer BC ==
[~2018-05-14] VITALS: Ht 177.8 cm; Wt 91.6 kg
[~2018-05-14 03:29] MED LIST changes: +FINA5TAB4 PO; +LEVO250T7 PO; +LEVO25TA55 PO
[2018-05-14 04:05] LABS: BASO % 0 % (0-3); EOS % 0 % (0-3); HEMATOCRIT 39.9 % (39.0-53.0); HEMOGLOBIN 13.4 g/dL (13.0-17.5); LYMPH % 18 % (24-48); MEAN CORPUSCULAR HEMOGLOBIN 30 pg (25-35); MEAN CORPUSCULAR HGB CONC 33 g/dL (31-37); MEAN CORPUSCULAR VOLUME 90 fL (79-100); MONO # 0.4 x10^3/uL (0.0-1.1); MONO % 6 % (0-9); NEUT # 4.3 x10^3uL (1.8-7.7); NEUT % 76 % (31-73); PLATELET COUNT 143 x10^3/uL (140-400); RED BLOOD COUNT 4.42 x10^6/uL (4.30-5.70); RED CELL DISTRIBUTION WIDTH 13.6 % (11.5-14.5); WHITE BLOOD COUNT 5.7 x10^3/uL (4.0-11.0)
[2018-05-14 04:16] LABS: CALCIUM 9.1 mg/dL (8.5-10.1); CREATININE 1.9 mg/dL (0.7-1.3); GFR 33.7; POTASSIUM 4.2 mmol/L (3.5-5.1)
[2018-05-14 04:22] LABS: ALBUMIN 2.6 g/dL (3.4-5.0); ALBUMIN/GLOBULIN RATIO 0.7 (1.0-1.7); TOTAL BILIRUBIN 0.6 mg/dL (0.2-1.0); TOTAL PROTEIN 6.6 g/dL (6.4-8.2)
[2018-05-14 04:30] LABS: CREATINE KINASE 27 U/L (39-308)
[2018-05-14] MEDS ORDERED: IV NORMAL SALINE 1000ML BAG 1,000 ML IV ONE (04:30)
--- NOTE | 2018-05-14 04:39 | PHYS DOC ---
Past Medical History Past Medical History: Cancer, Dementia, Heart Disease, Other Additional Past Medical Histor: colon ca- removedm, alzheimer's Past Medical History Limited due to history of dementia Past Surgical History: Colectomy, Pacemaker Past Surgical History Limited due to history of dementia Alcohol Use: None Drug Use: None Social History Limited due to history of dementia Adult General Chief Complaint Chief Complaint: MECHANICAL FALL HPI HPI Patient is a 87 male who presents due to fall 1 hour ago. History unobtainable by patient due to baseline dementia. History in this history of present illness was obtained by the . Fall was witnessed by who states that the patient fell on his way to the bathroom. She says the fall seemed to be mechanical and he went down on his left arm. She is not sure if he hit his head or not. Patient is unsure if he hit his head or not. Patient currently complains of pain in his left arm and points to the lateral clavicle region and mid humerus when asked about the pain. Patient is unable to describe or rate the pain. Review of Systems Review of Systems Musculoskeletal: Admits to pain and left lateral clavicle, shoulder, and mid humerus. Denies back pain, joint pain, pelvic pain, and leg pain. [] Remaining review of systems unable to be obtained due to patient's baseline dementia. Current Medications Current Medications Current Medications Medications (Trade) Dose Ordered Sig/Sunita Start Time Stop Time Status Last Admin Dose Admin Ceftriaxone Sodium (Rocephin) 1 gm 1X ONCE 05/14/18 07:00 05/14/18 07:01 DC 05/14/18 06:46 1 GM Sodium Chloride 1,000 ml @ 1,000 mls/hr 1X ONCE 05/14/18 04:30 05/14/18 05:29 DC 05/14/18 04:40 1,000 MLS/HR Allergies Allergies Allergies Coded Allergies Type Severity Reaction Last Updated Verified No Known Drug Allergies 08/18/14 No Physical Exam Physical Exam Constitutional: Well developed, well nourished, no acute distress, non-toxic appearance. [] HENT: Normocephalic, atraumatic, bilateral external ears normal, excess cerumen bilaterally, oropharynx moist, no oral exudates, nose normal. [] Eyes: PERRL, EOMI, conjunctiva normal, no discharge. [] Neck: Normal range of motion, no midline tenderness, supple Cardiovascular: Heart rate regular rhythm, no murmur [] Lungs & Thorax: Bilateral breath sounds clear to auscultation [] Abdomen: Soft, no tenderness, non-distended, pelvis stable and nontender Skin: Warm, dry, no erythema, no rash. [] Back: No midline tenderness, no CVA tenderness. [] Extremities: Tender to palpation left lateral clavicle, shoulder, and left mid humerus. Left elbow nontender. Patient unable to AB duct or flex left shoulder, bilateral LE with full ROM and nontender, no deformity noted. Neurologic: Sensation intact in upper extremities and lower extremities bilaterally. Alert, oriented to person but not to time or place. Psychologic: Affect normal, limited due to dementia Current Patient Data Vital Signs Vital Signs Date Time Temp Pulse Resp B/P (MAP) Pulse Ox O2 Delivery O2 Flow Rate FiO2 05/14/18 06:30 70 18 96 05/14/18 03:29 98.8 123/80 (94) Room Air 98.8 Lab Values Laboratory Tests Test 05/14/18 03:58 05/14/18 05:11 White Blood Count 5.7 x10^3/uL (4.0-11.0) Red Blood Count 4.42 x10^6/uL (4.30-5.70) Hemoglobin 13.4 g/dL (13.0-17.5) Hematocrit 39.9 % (39.0-53.0) Mean Corpuscular Volume 90 fL (79-100) Mean Corpuscular Hemoglobin 30 pg (25-35) Mean Corpuscular Hemoglobin Concent 33 g/dL (31-37) Red Cell Distribution Width 13.6 % (11.5-14.5) Platelet Count 143 x10^3/uL (140-400) Neutrophils (%) (Auto) 76 % (31-73) H Lymphocytes (%) (Auto) 18 % (24-48) L Monocytes (%) (Auto) 6 % (0-9) Eosinophils (%) (Auto) 0 % (0-3) Basophils (%) (Auto) 0 % (0-3) Neutrophils # (Auto) 4.3 x10^3uL (1.8-7.7) Lymphocytes # (Auto) 1.0 x10^3/uL (1.0-4.8) Monocytes # (Auto) 0.4 x10^3/uL (0.0-1.1) Eosinophils # (Auto) 0.0 x10^3/uL (0.0-0.7) Basophils # (Auto) 0.0 x10^3/uL (0.0-0.2) Sodium Level 139 mmol/L (136-145) Potassium Level 4.2 mmol/L (3.5-5.1) Chloride Level 103 mmol/L (98-107) Carbon Dioxide Level 28 mmol/L (21-32) Anion Gap 8 (6-14) Blood Urea Nitrogen 25 mg/dL (8-26) Creatinine 1.9 mg/dL (0.7-1.3) H Estimated GFR (Cockcroft-Gault) 33.7 BUN/Creatinine Ratio 13 (6-20) Glucose Level 118 mg/dL (70-99) H Calcium Level 9.1 mg/dL (8.5-10.1) Magnesium Level 2.0 mg/dL (1.8-2.4) Total Bilirubin 0.6 mg/dL (0.2-1.0) Aspartate Amino Transferase (AST) 24 U/L (15-37) Alanine Aminotransferase (ALT) 26 U/L (16-63) Alkaline Phosphatase 88 U/L (46-116) Creatine Kinase 27 U/L (39-308) L Creatine Kinase MB (Mass) 0.8 ng/mL (0.0-3.6) Creatine Kinase MB Relative Index % (0-4) Troponin I Quantitative < 0.017 ng/mL (0.000-0.055) Total Protein 6.6 g/dL (6.4-8.2) Albumin 2.6 g/dL (3.4-5.0) L Albumin/Globulin Ratio 0.7 (1.0-1.7) L Urine Collection Type U cath Urine Color Yellow Urine Clarity Clear Urine pH 6.0 Urine Specific [place] 1.015 Urine Protein 30 mg/dL (NEG-TRACE) Urine Glucose (UA) Negative mg/dL (NEG) Urine Ketones (Stick) Negative mg/dL (NEG) Urine Blood Moderate (NEG) Urine Nitrite Negative (NEG) Urine Bilirubin Negative (NEG) Urine Urobilinogen Dipstick 0.2 mg/dL (0.2 mg/dL) Urine Leukocyte Esterase Large (NEG) Urine RBC Fobs /HPF (0-2) Urine WBC Tntc /HPF (0-4) Urine Bacteria Many /HPF (0-FEW) Laboratory Tests 05/14/18 03:58 Laboratory Tests 05/14/18 03:58 EKG EKG Recorded at 0343 on 05/14/2018. Rate of 70 bpm, paced. No notable STEMI or in STEMI. No notable changes from prior EKG on 04/18/2018.[] Radiology/Procedures Radiology/Procedures PROCEDURE: CT HEAD AND CERVICAL SPINE WO CT head without contrast and CT cervical spine without contrast dated 05/14/2018. Comparison made to 04/17/2018. Clinical data indication: Pain after fall. TECHNIQUE: Contiguous axial imaging the head was performed from skull base to vertex. No contrast administered. In addition, axial imaging of the cervical spine acquired with thin cut coronal and sagittal reconstruction. One or more of the following individualized dose reduction techniques were utilized for this examination: 1. Automated exposure control 2. Adjustment of the mA and/or kV according to patient size 3. Use of iterative reconstruction technique. FINDINGS: Ventricles and sulci are mildly prominent for age. No midline shift or mass effect. Mild patchy low density in the deep/subcortical periventricular white matter. No hemorrhage or extra-axial collection. Which are fossa and brainstem unremarkable. Visualized paranasal sinuses are clear. There is complete opacification of the right mastoid air cells, unchanged. No acute calvarial abnormality. Images of the cervical spine were acquired from skull base to mid T3. There is slight retrolisthesis of C3 on C4 and mild anterolisthesis of C4 on C5. Sagittal alignment is otherwise anatomic. Vertebral body heights are maintained. No prevertebral soft tissue swelling. Posterior elements are intact. No apparent fracture. Moderate endplate hypertrophic changes throughout. Moderate disc space narrowing at C3-C4, C5-C6 and C6-C7 with multilevel uncovertebral spurring. Moderate multilevel facet arthropathy. There is resultant mild to moderate central stenosis at C3-C4 with mild central canal narrowing at C5-C6 and C6-C7. Multilevel mild to moderate foraminal narrowing throughout with severe bilateral foraminal stenosis at C3-C4. Visualized soft tissue structures unremarkable. Mild to moderate emphysema at the lung apices. Biapical scarring. IMPRESSION HEAD: 1. No evidence of acute intracranial hemorrhage or mass. 2. Mild chronic small vessel ischemic changes and atrophy. 3. Chronic opacification of the right mastoid air cells. IMPRESSION CERVICAL SPINE: 1. No evidence of fracture or malalignment. 2. Moderate multilevel cervical spondylosis. Electronically signed by: Swapnil Perez MD (05/14/2018 5:01 AM) [place] [id number] Chest X-ray: Single supine portable exam performed. Heart and mediastinal contours are stable. Dual lead left subclavian pacer in place, unchanged. Lungs are clear without focal consolidation. Vascular interstitium within normal limits. No pleural effusion or pneumothorax. No apparent fracture. IMPRESSION:. No acute radiographic abnormality. Electronically signed by: Swapnil Perez MD (05/14/2018 5:43 AM) [place] [id number] Humerus X-ray Three-view left shoulder and two-view left humerus dated 05/14/2018. No comparison available. CLINICAL INDICATION: Pain after fall. FINDINGS: 3 views left shoulder show normal bony alignment. No displaced fracture. Mild hypertrophic change of the AC joint. No acute osseous or articular abnormality. 2 views left humerus show normal bony alignment. No displaced fracture. Humeral shaft is intact. No acute osseous or articular abnormality. Mild soft tissue swelling. IMPRESSION: 1. No acute radiographic abnormality. Electronically signed by: Swapnil Perez MD (05/14/2018 5:41 AM) [place] [id number] Pelvis X-ray Single view pelvis dated 05/14/2018. No comparison available. CLINICAL INDICATION: Pain after fall. FINDINGS: Single AP view pelvis shows normal bony alignment. No displaced fracture. Pelvic ring is intact. Mild hypertrophic change of the bilateral SI joint and bilateral hip joint. There prominent calcifications of the pelvis which could be related to phleboliths and/or bladder stones. Spondylotic change of the lower lumbar spine. IMPRESSION: 1. No evidence of displaced fracture. If there is clinical concern for occult fracture or insufficiency fracture, MRI would better evaluate. 2. Degenerative changes as described above. Electronically signed by: Swapnil Perez MD (05/14/2018 5:42 AM) [place] [id number] Shoulder X-ray Three-view left shoulder and two-view left humerus dated 05/14/2018. No comparison available. CLINICAL INDICATION: Pain after fall. FINDINGS: 3 views left shoulder show normal bony alignment. No displaced fracture. Mild hypertrophic change of the AC joint. No acute osseous or articular abnormality. 2 views left humerus show normal bony alignment. No displaced fracture. Humeral shaft is intact. No acute osseous or articular abnormality. Mild soft tissue swelling. IMPRESSION: 1. No acute radiographic abnormality. Electronically signed by: Swapnil Perez MD (05/14/2018 5:41 AM) [facility] Course & Med Decision Making Course & Med Decision Making Pertinent Labs and Imaging studies reviewed. (See chart for details) Patient is an 87-year-old male who presented to the ED S/PE fall at home one hour prior to presentation. Fall was witnessed onto his left side from a standing position. Left shoulder and humerus x-ray showed no signs of displaced fracture or radiologic abnormality with possible soft tissue swelling. Chest x-ray and pelvis XR showed no acute process. CT head and neck showed no acute intracranial abnormality. Labs obtained and posted to chart. EKG stable. UA with signs of infection. Empiric antibiotics given. Offered admission for further evaluation and treatment. Family elected to take patient home. Reports they have an appointment with PCP this AM. Patient stable for discharge home with close outpatient follow-up with PCP. Discussed findings and plan with family, who acknowledge understanding and agreement. Dragon Disclaimer Dragon Disclaimer This electronic medical record was generated, in whole or in part, using a voice recognition dictation system. Departure Departure Impression: Primary Impression: Fall Additional Impressions: Left upper arm pain UTI (urinary tract infection) Disposition: 01 HOME, SELF-CARE Condition: STABLE Referrals: SWAPNIL PAPPAS MD (PCP) Patient Instructions: Contusion, [id number], Fall Prevention and Home Safety , [id number], Urinary Tract Infection, [id number] Additional Instructions: ICE area 20 min on/off for next few days. May use over the counter Tylenol or Ibuprofen for pain. Scripts Cephalexin (KEFLEX) 500 Mg Capsule 500 MG PO TID for 7 Days, #21 CAP Prov: SWAPNIL MARIO DO 05/14/18 Problem Qualifiers Primary Impression: Fall Encounter type: initial encounter Qualified Codes: W19.XXXA - Unspecified fall, initial encounter Additional Impressions: UTI (urinary tract infection) Urinary tract infection type: acute cystitis Hematuria presence: without hematuria Qualified Codes: N30.00 - Acute cystitis without hematuria SWAPNIL MARIO DO May 14, 2018 04:39
--- NOTE | 2018-05-14 05:04 | RAD ---
CT head without contrast and CT cervical spine without contrast dated 05/14/2018. Comparison made to 04/17/2018. Clinical data indication: Pain after fall. TECHNIQUE: Contiguous axial imaging the head was performed from skull base to vertex. No contrast administered. In addition, axial imaging of the cervical spine acquired with thin cut coronal and sagittal reconstruction. One or more of the following individualized dose reduction techniques were utilized for this examination: 1. Automated exposure control 2. Adjustment of the mA and/or kV according to patient size 3. Use of iterative reconstruction technique. FINDINGS: Ventricles and sulci are mildly prominent for age. No midline shift or mass effect. Mild patchy low density in the deep/subcortical periventricular white matter. No hemorrhage or extra-axial collection. Which are fossa and brainstem unremarkable. Visualized paranasal sinuses are clear. There is complete opacification of the right mastoid air cells, unchanged. No acute calvarial abnormality. Images of the cervical spine were acquired from skull base to mid T3. There is slight retrolisthesis of C3 on C4 and mild anterolisthesis of C4 on C5. Sagittal alignment is otherwise anatomic. Vertebral body heights are maintained. No prevertebral soft tissue swelling. Posterior elements are intact. No apparent fracture. Moderate endplate hypertrophic changes throughout. Moderate disc space narrowing at C3-C4, C5-C6 and C6-C7 with multilevel uncovertebral spurring. Moderate multilevel facet arthropathy. There is resultant mild to moderate central stenosis at C3-C4 with mild central canal narrowing at C5-C6 and C6-C7. Multilevel mild to moderate foraminal narrowing throughout with severe bilateral foraminal stenosis at C3-C4. Visualized soft tissue structures unremarkable. Mild to moderate emphysema at the lung apices. Biapical scarring. IMPRESSION HEAD: 1. No evidence of acute intracranial hemorrhage or mass. 2. Mild chronic small vessel ischemic changes and atrophy. 3. Chronic opacification of the right mastoid air cells. IMPRESSION CERVICAL SPINE: 1. No evidence of fracture or malalignment. 2. Moderate multilevel cervical spondylosis. Electronically signed by: Swapnil Perez MD (05/14/2018 5:01 AM) [facility]
--- NOTE | 2018-05-14 05:44 | RAD ---
Three-view left shoulder and two-view left humerus dated 05/14/2018. No comparison available. CLINICAL INDICATION: Pain after fall. FINDINGS: 3 views left shoulder show normal bony alignment. No displaced fracture. Mild hypertrophic change of the AC joint. No acute osseous or articular abnormality. 2 views left humerus show normal bony alignment. No displaced fracture. Humeral shaft is intact. No acute osseous or articular abnormality. Mild soft tissue swelling. IMPRESSION: 1. No acute radiographic abnormality. Electronically signed by: Swapnil Perez MD (05/14/2018 5:41 AM) [facility]
[2018-05-14 05:46] LABS: BILIRUBIN,URINE NEGATIVE (NEG); CLARITY,URINE CLEAR; COLOR,URINE YELLOW; NITRITE,URINE NEGATIVE (NEG); PROTEIN,URINE 30 mg/dL (NEG-TRACE); UROBILINOGEN,URINE 0.2 mg/dL (0.2 mg/dL)
--- NOTE | 2018-05-14 05:46 | RAD ---
Single view pelvis dated 05/14/2018. No comparison available. CLINICAL INDICATION: Pain after fall. FINDINGS: Single AP view pelvis shows normal bony alignment. No displaced fracture. Pelvic ring is intact. Mild hypertrophic change of the bilateral SI joint and bilateral hip joint. There prominent calcifications of the pelvis which could be related to phleboliths and/or bladder stones. Spondylotic change of the lower lumbar spine. IMPRESSION: 1. No evidence of displaced fracture. If there is clinical concern for occult fracture or insufficiency fracture, MRI would better evaluate. 2. Degenerative changes as described above. Electronically signed by: Swapnil Perez MD (05/14/2018 5:42 AM) [facility] [place]
--- NOTE | 2018-05-14 05:47 | RAD ---
Single view chest dated 05/14/2018. Comparison made to April 17, 2018. CLINICAL INDICATION: Pain after fall. FINDINGS: Single supine portable exam performed. Heart and mediastinal contours are stable. Dual lead left subclavian pacer in place, unchanged. Lungs are clear without focal consolidation. Vascular interstitium within normal limits. No pleural effusion or pneumothorax. No apparent fracture. IMPRESSION:. No acute radiographic abnormality. Electronically signed by: Swapnil Perez MD (05/14/2018 5:43 AM) [id number]
[2018-05-14 06:21] LABS: BACTERIA,URINE MANY /HPF (0-FEW); RBC,URINE FOBS /HPF (0-2); WBC,URINE TNTC /HPF (0-4)
[2018-05-14 06:30] VITALS: BP 119/58
[2018-05-14] MEDS ORDERED: CEPH-264 PO (06:32)
[2018-05-14] MEDS ORDERED: cefTRIAXone IV Push 1 GM VIAL. IVP ONE (07:00)
--- NOTE | 2018-05-14 07:14 | EKG ---
[facility] [address] [place] [address] Test Date: 2018-05-14 Test Time: 03:43:38 Pat Name: CAROL VAN Department: Room: Gender: M Care Support Representative: : 1930 Requested By: DANILO MARIO Order Number: [id number] Reading MD: Davy Yost MD Measurements Intervals [place] Rate: 140 P: SD: QRS: -34 QRSD: 124 T: 93 QT: 334 QTc: 514 Interpretive Statements PROBABLE A-V SEQUENTIAL PACING Electronically Signed On 05-14-2018 7:46:04 CAPTAIN WAITER by Davy Yost MD
== END 2018-05-14 07:09 | disposition home or self-care (01) ==
LOC: EDBD → ER 03:29
DX: M79.602 Pain in left arm (principal); N30.00 Acute cystitis without hematuria; G89.11 Acute pain due to trauma; M25.512 Pain in left shoulder; H61.23 Impacted cerumen, bilateral; G30.9 Alzheimer's disease, unspecified; F02.80 Dementia in other diseases classified elsewhere, unspecified severity, without behavioral disturbance, psychotic disturbance, mood disturbance, and anxiety; Z95.0 Presence of cardiac pacemaker; Z90.49 Acquired absence of other specified parts of digestive tract; Z86.79 Personal history of other diseases of the circulatory system; W18.39XA Other fall on same level, initial encounter; Y93.89 Activity, other specified; Y92.89 Other specified places as the place of occurrence of the external cause; Y99.8 Other external cause status
CPT/HCPCS: 36415; 51701; 70450; 71045; 72125; 72170; 73030; 73060; 80053; 81001; 82553; 83735; 84484; 85025; 87086; 93005; 96374; 99284; J0696; J7030; 87186; 96361

== ENCOUNTER 2019-11-23 23:00 | Inpatient (IN) | payer BC, MEDICAID ==
[~2019-11-23] VITALS: Ht 182.9 cm; Wt 75.0 kg
[~2019-11-23 23:00] MED LIST changes: +CEPH-264 PO
[2019-11-23 23:59] LABS: BILIRUBIN,URINE NEGATIVE (NEG); CLARITY,URINE CLEAR; COLOR,URINE YELLOW; NITRITE,URINE NEGATIVE (NEG); PROTEIN,URINE NEGATIVE (NEG-TRACE); UROBILINOGEN,URINE 0.2 mg/dL (0.2 mg/dL)
[2019-11-24 00:04] LABS: BASO % 0 % (0-3); EOS % 0 % (0-3); HEMATOCRIT 40.4 % (39.0-53.0); HEMOGLOBIN 13.5 g/dL (13.0-17.5); LYMPH # 0.7 x10^3/uL (1.0-4.8); LYMPH % 5 % (24-48); MEAN CORPUSCULAR HEMOGLOBIN 29 pg (25-35); MEAN CORPUSCULAR HGB CONC 34 g/dL (31-37); MEAN CORPUSCULAR VOLUME 87 fL (79-100); MONO # 0.7 x10^3/uL (0.0-1.1); MONO % 5 % (0-9); NEUT # 13.1 x10^3/uL (1.8-7.7); NEUT % 91 % (31-73); PLATELET COUNT 199 x10^3/uL (140-400); RED BLOOD COUNT 4.63 x10^6/uL (4.30-5.70); RED CELL DISTRIBUTION WIDTH 14.2 % (11.5-14.5); WHITE BLOOD COUNT 14.4 x10^3/uL (4.0-11.0)
[2019-11-24 00:13] LABS: SQUAMOUS EPITHELIAL CELL,UR OCC /LPF
[2019-11-24 00:14] LABS: AMORPHOUS SEDIMENT,UR PRESENT /HPF; BACTERIA,URINE MODERATE /HPF (0-FEW)
[2019-11-24 00:17] LABS: PROTHROMBIN TIME PATIENT 14.2 SEC (11.7-14.0)
[2019-11-24 00:18] LABS: CALCIUM 8.6 mg/dL (8.5-10.1); GFR 31.6; POTASSIUM 3.8 mmol/L (3.5-5.1)
[2019-11-24 00:24] LABS: ALBUMIN/GLOBULIN RATIO 0.7 (1.0-1.7); MAGNESIUM 1.6 mg/dL (1.8-2.4); TOTAL BILIRUBIN 1.2 mg/dL (0.2-1.0); TOTAL PROTEIN 7.2 g/dL (6.4-8.2)
[2019-11-24 00:33] LABS: LACTATE DEHYDROGENASE 324 U/L (85-227)
[2019-11-24 00:38] LABS: % BANDS 5 % (0-9); % LYMPHS 5 % (24-48); % MONOS 2 % (0-10); % SEGS 88 % (35-66); PLT ESTIMATE ADEQUATE (ADEQUATE)
--- NOTE | 2019-11-24 00:48 | PHYS DOC ---
Past Medical History Past Medical History: Cancer, Dementia, Heart Disease, Hypothyroid, Other Additional Past Medical Histor: colon ca- removedm, alzheimer's, bph Past Medical History Limited secondary to dementia/nonverbal at baseline Past Surgical History: Colectomy, Pacemaker Past Surgical History Limited secondary to dementia/nonverbal at baseline Smoking Status: Never Smoker Alcohol Use: None Drug Use: None Social History Limited secondary to dementia/nonverbal at baseline General Adult EDM: Chief Complaint: MULTIPLE COMPLAINTS HPI: HPI: Patient is a 89 year old male presents via EMS with report of increased weakness and somnolence over the last few days. Patient with long standing history of dementia and is essentially nonverbal at baseline. He does however periodically converse with his spouse. Patient apparently with history of UTIs. History of present illness limited secondary to dementia/nonverbal at baseline. Review of Systems: Review of Systems: Review of systems limited secondary to dementia/nonverbal at baseline Current Medications: Current Medications Medications (Trade) Dose Ordered Sig/Sunita Start Time Stop Time Status Last Admin Dose Admin Acetaminophen (Tylenol) 500 mg 1X ONCE 11/24/19 01:00 11/24/19 01:01 Magnesium Sulfate 50 ml @ 25 mls/hr 1X ONCE 11/24/19 01:00 11/24/19 02:59 Piperacillin Sod/ Tazobactam Sod 4.5 gm/Sodium Chloride 100 ml @ 200 mls/hr 1X ONCE 11/24/19 01:00 11/24/19 01:29 Sodium Chloride 1,000 ml @ 1,000 mls/hr 1X ONCE 11/24/19 01:00 11/24/19 01:59 Allergies: Allergies: Allergies Coded Allergies Type Severity Reaction Last Updated Verified No Known Drug Allergies 08/18/14 No Physical Exam: PE: Constitutional: Well developed, well nourished, no acute distress, non-toxic appearance HENT: Normocephalic, atraumatic Eyes: PERRL, conjunctiva normal, no discharge Neck: Normal range of motion, supple Lungs & Thorax: No respiratory distress, equal chest rise and fall Abdomen: Soft, no tenderness Skin: Warm, dry, no erythema, no rash Extremities: No tenderness, ROM intact, no edema Neurologic: Alert, nonverbal in room, does not follow commands, GCS 10 (eye4, verbal1, motor 5) Psychologic: Limited, judgment abnormal Current Patient Data: Labs: Laboratory Tests Test 11/23/19 23:40 11/23/19 23:50 White Blood Count 14.4 x10^3/uL (4.0-11.0) H Red Blood Count 4.63 x10^6/uL (4.30-5.70) Hemoglobin 13.5 g/dL (13.0-17.5) Hematocrit 40.4 % (39.0-53.0) Mean Corpuscular Volume 87 fL (79-100) Mean Corpuscular Hemoglobin 29 pg (25-35) Mean Corpuscular Hemoglobin Concent 34 g/dL (31-37) Red Cell Distribution Width 14.2 % (11.5-14.5) Platelet Count 199 x10^3/uL (140-400) Neutrophils (%) (Auto) 91 % (31-73) H Lymphocytes (%) (Auto) 5 % (24-48) L Monocytes (%) (Auto) 5 % (0-9) Eosinophils (%) (Auto) 0 % (0-3) Basophils (%) (Auto) 0 % (0-3) Neutrophils # (Auto) 13.1 x10^3/uL (1.8-7.7) H Lymphocytes # (Auto) 0.7 x10^3/uL (1.0-4.8) L Monocytes # (Auto) 0.7 x10^3/uL (0.0-1.1) Eosinophils # (Auto) 0.0 x10^3/uL (0.0-0.7) Basophils # (Auto) 0.0 x10^3/uL (0.0-0.2) Segmented Neutrophils % 88 % (35-66) H Band Neutrophils % 5 % (0-9) Lymphocytes % 5 % (24-48) L Monocytes % 2 % (0-10) Platelet Estimate Adequate (ADEQUATE) Prothrombin Time 14.2 SEC (11.7-14.0) H Prothrombin Time INR 1.1 (0.8-1.1) Activated Partial Thromboplast Time 25 SEC (24-38) D-Dimer (Dotty) 4.60 ug/mlFEU (0.00-0.50) H Sodium Level 136 mmol/L (136-145) Potassium Level 3.8 mmol/L (3.5-5.1) Chloride Level 102 mmol/L (98-107) Carbon Dioxide Level 21 mmol/L (21-32) Anion Gap 13 (6-14) Blood Urea Nitrogen 20 mg/dL (8-26) Creatinine 2.0 mg/dL (0.7-1.3) H Estimated GFR (Cockcroft-Gault) 31.6 BUN/Creatinine Ratio 10 (6-20) Glucose Level 119 mg/dL (70-99) H Lactic Acid Level 1.8 mmol/L (0.4-2.0) Calcium Level 8.6 mg/dL (8.5-10.1) Magnesium Level 1.6 mg/dL (1.8-2.4) L Ferritin 82 ng/mL (26-388) Total Bilirubin 1.2 mg/dL (0.2-1.0) H Aspartate Amino Transferase (AST) 16 U/L (15-37) Alanine Aminotransferase (ALT) 16 U/L (16-63) Alkaline Phosphatase 77 U/L (46-116) Lactate Dehydrogenase 324 U/L (85-227) H Creatine Kinase 101 U/L (39-308) Creatine Kinase MB (Mass) 0.6 ng/mL (0.0-3.6) Creatine Kinase MB Relative Index 0.6 % (0-4) Troponin I Quantitative 0.019 ng/mL (0.000-0.055) KJ-Fao-K-Type Natriuretic Peptide 2358 pg/mL (0-449) H Total Protein 7.2 g/dL (6.4-8.2) Albumin 3.0 g/dL (3.4-5.0) L Albumin/Globulin Ratio 0.7 (1.0-1.7) L Urine Collection Type Unknown Urine Color Yellow Urine Clarity Clear Urine pH 6.0 (<5.0-8.0) Urine Specific [place] 1.010 (1.000-1.030) Urine Protein Negative mg/dL (NEG-TRACE) Urine Glucose (UA) Negative mg/dL (NEG) Urine Ketones (Stick) Negative mg/dL (NEG) Urine Blood Small (NEG) Urine Nitrite Negative (NEG) Urine Bilirubin Negative (NEG) Urine Urobilinogen Dipstick 0.2 mg/dL (0.2 mg/dL) Urine Leukocyte Esterase Large (NEG) Urine RBC 3-5 /HPF (0-2) Urine WBC 11-20 /HPF (0-4) Urine Squamous Epithelial Cells Occ /LPF Urine Amorphous Sediment Present /HPF Urine Bacteria Moderate /HPF (0-FEW) Urine Mucus Slight /LPF Laboratory Tests 11/23/19 23:40 Laboratory Tests 11/23/19 23:40 Vital Signs: Vital Signs Date Time Temp Pulse Resp B/P (MAP) Pulse Ox O2 Delivery O2 Flow Rate FiO2 11/23/19 23:35 101.2 104 20 103/59 (74) 93 Room Air 101.2 EKG: EKG: @0115 NSR at 91bpm, NO ST elevated, QRS 162ms, QT/QTc 404/499ms, t wave inversion aVL, wandering baseline to V3 Radiology/Procedures: Radiology/Procedures: PROCEDURE: CHEST AP ONLY EXAM: CHEST 1 VIEW History: Shortness of breath COMPARISON: None available. TECHNIQUE: Single portable radiograph of the chest FINDINGS: The cardiac silhouette is unremarkable. Left-sided cardiac pacer is identified. Mild bibasilar lung airspace opacities likely atelectasis or infiltrates. IMPRESSION: Mild bibasilar lung airspace opacities likely atelectasis or infiltrates. Electronically signed by: Italo Conteh MD (11/24/2019 1:30 AM) [id number] Course & Med Decision Making: Course & Med Decision Making Pertinent Labs and Imaging studies reviewed. (See chart for details) Elderly patient with pmh of dementia and is essentially nonverbal presents via EMS from assisted due to increased somnolence. Febrile upon arrival. Concern for possible COVID. COVID precautions in place. COVID testing pending. Labs obtained and posted to chart. WBC elevated. Lactic acid WNL. Creatinine elevated. Troponin WNL. EKG stable. CXR without acute process. UA with signs of infection. Empiric antibiotics given. D-dimer elevated. No clinical signs of DVT and patient with good O2 sats. V/Q scan ordered and pending. Will hold empiric anticoagulant until VQ scan results. Patient requiring admission for further evaluation and treatment. Discussed with Dr. Farfan (hospitalist) who is in agreement with admit. Discussed findings and plan with patient's son (DPOA), who acknowledges understanding and agreement. DPOA requests DNR status. COVID-19 CRITERIA: The patient was evaluated during the global COVID-19 pandemic, and that diagnosis was suspected/considered upon their initial presentation. Their evaluation, treatment and testing was consistent with current guidelines for patients who present with complaints or symptoms that may be related to COVID-19. Dragon Disclaimer: Dragon Disclaimer: This electronic medical record was generated, in whole or in part, using a voice recognition dictation system. Departure Departure Impression: Primary Impression: Sepsis Qualified Codes: A41.9 - Sepsis, unspecified organism Additional Impressions: UTI (urinary tract infection) Qualified Codes: N30.00 - Acute cystitis without hematuria Hypomagnesemia Person under investigation for COVID-19 Elevated d-dimer Disposition: ADMITTED INPATIENT Admitting Physician: MARIA ISABEL (Adolph) Condition: GUARDED Referrals: DANILO PAPPAS MD (PCP) Justicifation of Admission Dx: Justifications for Admission: Justification of Admission Dx: Yes Comments: Sepsis, COVID PUI, hypomagnesemia, dementia, UTI COVID-19 Assessment: COVID-19 Patient Risks: Age 65 or older: Yes Sign of co-morbidity: Yes Exp to person + for COVID: No Exp to PUI: No Travel from affected area: No Lower respiratory symptoms: Yes Fever: Yes PPE Use: Full PPE with N95 mask or PAPR: Yes Critical Care Time Critical care time was 30 minutes which includes time at bedside, spent in discussion of patient's care with specialists and/or family members, with interpretation of laboratory and/or radiological studies and is exclusive of procedures. DANILO MARIO DO Nov 24, 2019 00:48
[2019-11-24] MEDS ORDERED: ONDANSETRON PF 4 MG/2 ML VIAL. IV PRN (01:00)
[2019-11-24] MEDS ORDERED: ACETAMINOPHEN 325 MG TABLET. PO PRN (01:00)
[2019-11-24] MEDS ORDERED: MAGNESIUM SULFATE 2GM 50 ML IV ONE (01:00)
[2019-11-24] MEDS ORDERED: ACETAMINOPHEN 500 MG TABLET PO ONE (01:00)
[2019-11-24] MEDS ORDERED: PIPERACILLIN/TAZOBACTAM 4.5 GM in IV NORMAL SALINE 100ML 100 ML IV ONE (01:00)
[2019-11-24] MEDS ORDERED: IV NORMAL SALINE 1000ML BAG 1,000 ML IV ONE (01:00)
[2019-11-24] MEDS ORDERED: ACETAMINOPHEN 650 MG SUPP.RECT. PR ONE (01:15)
--- NOTE | 2019-11-24 01:33 | RAD ---
EXAM: CHEST 1 VIEW History: Shortness of breath COMPARISON: None available. TECHNIQUE: Single portable radiograph of the chest FINDINGS: The cardiac silhouette is unremarkable. Left-sided cardiac pacer is identified. Mild bibasilar lung airspace opacities likely atelectasis or infiltrates. IMPRESSION: Mild bibasilar lung airspace opacities likely atelectasis or infiltrates. Electronically signed by: Italo Conteh MD (11/24/2019 1:30 AM) [id number]
[2019-11-24] MEDS ORDERED: QUET50TA5 PO (05:51)
[2019-11-24] MEDS ORDERED: MELA3TAB43 PO (05:51)
[2019-11-24] MEDS ORDERED: BUSP10TA PO (05:51)
--- NOTE | 2019-11-24 06:19 | NUR ---
Patient arrived to floor at 0524 via bed. Patient transferred to hospital bed by 4 nursing staff at this time and patients brief was changed. Patient is nonverbal, confused, agitated and combative with nursing staff. Patient refuses to let staff obtain vital signs or apply telemetry leads. Patient continuously tries to hit, kick and grab at staff when attempting any care for patient. Will continue to monitor and attempt care. Bed alarm on.
[2019-11-24 07:15] VITALS: BP 101/46
[2019-11-24 07:58] LABS: CALCIUM 8.5 mg/dL (8.5-10.1); GFR 31.6; POTASSIUM 4.1 mmol/L (3.5-5.1)
[2019-11-24 09:26] LABS: BASO # 0.1 x10^3/uL (0.0-0.2); BASO % 1 % (0-3); EOS % 0 % (0-3); HEMOGLOBIN 12.1 g/dL (13.0-17.5); LYMPH # 2.4 x10^3/uL (1.0-4.8); LYMPH % 14 % (24-48); MEAN CORPUSCULAR HEMOGLOBIN 30 pg (25-35); MEAN CORPUSCULAR HGB CONC 34 g/dL (31-37); MEAN CORPUSCULAR VOLUME 88 fL (79-100); MONO # 1.9 x10^3/uL (0.0-1.1); MONO % 11 % (0-9); NEUT # 12.8 x10^3/uL (1.8-7.7); NEUT % 74 % (31-73); PLATELET COUNT 196 x10^3/uL (140-400); RED BLOOD COUNT 4.08 x10^6/uL (4.30-5.70); RED CELL DISTRIBUTION WIDTH 14.6 % (11.5-14.5); WHITE BLOOD COUNT 17.2 x10^3/uL (4.0-11.0)
[2019-11-24] MEDS ORDERED: SERT50TA8 PO (10:12)
--- NOTE | 2019-11-24 10:39 | PDOC1 ---
History and Physical Date of Admission Date of Admission DATE: 11/24/19 TIME: 10:15 Identification/Chief Complaint Chief Complaint Lethargy Source Source: Chart review History of Present Illness History of Present Illness Patient is a 72-year-old male with past medical history of dementia, who arrives via EMS from his [facility] facility due to worsening lethargy. Upon arrival in the ER he was noted to have associated fever and tachycardia. Further history cannot be obtained due to history of dementia. T 101.2, HR 104, BP 103/59 WBC 14.4, BUN 23, Cr 2.0, Lactate 1.8, D-Dimer 4.60 UA: large leukocyte esterase, WBC 1120, moderate bacteria Past Medical History Past Medical History Alzheimer's dementia, hypothyroidism, sick sinus syndrome status post pacemaker, benign prostatic hypertrophy Past Surgical History Past Surgical History Partial colectomy, pacemaker insertion Family History Family History Noncontributory Social History Smoke: No ALCOHOL: none Drugs: None Current Problem List Problem List Problems Medical Problems: (1) Elevated d-dimer Status: Acute (2) Hypomagnesemia Status: Acute Current Medications Current Medications Current Medications Sodium Chloride 1,000 ml @ 1,000 mls/hr 1X ONCE IV Last administered on 11/24/19at 01:00; Start 11/24/19 at 01:00; Stop 11/24/19 at 01:59; Status DC Acetaminophen (Tylenol) 500 mg 1X ONCE PO ; Start 11/24/19 at 01:00; Stop 11/24/19 at 01:12; Status DC Piperacillin Sod/ Tazobactam Sod 4.5 gm/Sodium Chloride 100 ml @ 200 mls/hr 1X ONCE IV Last administered on 11/24/19at 01:00; Start 11/24/19 at 01:00; Stop 11/24/19 at 01:29; Status DC Magnesium Sulfate 50 ml @ 25 mls/hr 1X ONCE IV Last administered on 11/24/19at 01:37; Start 11/24/19 at 01:00; Stop 11/24/19 at 02:59; Status DC Ondansetron HCl (Zofran) 4 mg PRN Q8HRS PRN IV NAUSEA/VOMITING 1ST CHOICE; Start 11/24/19 at 01:00; Stop 11/25/19 at 00:59 Acetaminophen (Tylenol) 650 mg PRN Q4HRS PRN PO FEVER > 100.3'F; Start 11/24/19 at 01:00; Stop 11/25/19 at 00:59 Acetaminophen (Tylenol Supp) 650 mg 1X ONCE MN Last administered on 11/24/19at 01:15; Start 11/24/19 at 01:15; Stop 11/24/19 at 01:19; Status DC Cefepime HCl (Maxipime) 2 gm Q24H IVP ; Start 11/25/19 at 08:00; Status UNV Active Scripts Active Keflex (Cephalexin) 500 Mg Capsule 500 Mg PO TID 7 Days Finasteride 5 Mg Tablet 5 Mg PO DAILY 30 Days Synthroid (Levothyroxine Sodium) 25 Mcg Tablet 25 Mcg PO DAILY06 30 Days Levofloxacin 250 Mg Tablet 250 Mg PO DAILY06 7 Days Flomax (Tamsulosin Hcl) 0.4 Mg Cap.er.24h 0.4 Mg PO QHS Reported Sertraline Hcl 50 Mg Tablet 50 Mg PO DAILY Seroquel (Quetiapine Fumarate) 50 Mg Tablet 50 Mg PO BID Melatonin 3 Mg Tab.rapdis 3 Mg PO QHS Buspirone Hcl 10 Mg Tablet 10 Mg PO BID Namenda (Memantine Hcl) 10 Mg Tablet 1 Tab PO BID Allergies Allergies: Coded Allergies: No Known Drug Allergies (Unverified , 08/18/14) ROS Review of System Unable to obtain due to history of dementia Physical Exam Physical Exam General: Alert, Cooperative, No acute distress HEENT: PERRLA, EOMI Lungs: Clear to auscultation, Normal air movement Heart: RRR, no murmurs Cardiovascular: S1, S2 Abdomen: Normal bowel sounds, Soft, No tenderness Extremities: No clubbing, No cyanosis, 1+ edema bilateral lower extremities Skin: No rashes, No significant lesion Neuro: Normal tone, Sensation intact Psych/Mental Status: Mood NL Vitals Vitals Vital Signs Date Time Temp Pulse Resp B/P (MAP) Pulse Ox O2 Delivery O2 Flow Rate FiO2 11/24/19 07:15 16 101/46 (64) Room Air 11/24/19 03:50 67 97 11/23/19 23:35 101.2 101.2 Labs Labs Laboratory Tests Test 11/23/19 23:40 11/23/19 23:50 11/24/19 04:02 9/14/20 09:11 White Blood Count 14.4 x10^3/uL (4.0-11.0) 17.2 x10^3/uL (4.0-11.0) Red Blood Count 4.63 x10^6/uL (4.30-5.70) 4.08 x10^6/uL (4.30-5.70) Hemoglobin 13.5 g/dL (13.0-17.5) 12.1 g/dL (13.0-17.5) Hematocrit 40.4 % (39.0-53.0) 36.0 % (39.0-53.0) Mean Corpuscular Volume 87 fL (79-100) 88 fL (79-100) Mean Corpuscular Hemoglobin 29 pg (25-35) 30 pg (25-35) Mean Corpuscular Hemoglobin Concent 34 g/dL (31-37) 34 g/dL (31-37) Red Cell Distribution Width 14.2 % (11.5-14.5) 14.6 % (11.5-14.5) Platelet Count 199 x10^3/uL (140-400) 196 x10^3/uL (140-400) Neutrophils (%) (Auto) 91 % (31-73) 74 % (31-73) Lymphocytes (%) (Auto) 5 % (24-48) 14 % (24-48) Monocytes (%) (Auto) 5 % (0-9) 11 % (0-9) Eosinophils (%) (Auto) 0 % (0-3) 0 % (0-3) Basophils (%) (Auto) 0 % (0-3) 1 % (0-3) Neutrophils # (Auto) 13.1 x10^3/uL (1.8-7.7) 12.8 x10^3/uL (1.8-7.7) Lymphocytes # (Auto) 0.7 x10^3/uL (1.0-4.8) 2.4 x10^3/uL (1.0-4.8) Monocytes # (Auto) 0.7 x10^3/uL (0.0-1.1) 1.9 x10^3/uL (0.0-1.1) Eosinophils # (Auto) 0.0 x10^3/uL (0.0-0.7) 0.0 x10^3/uL (0.0-0.7) Basophils # (Auto) 0.0 x10^3/uL (0.0-0.2) 0.1 x10^3/uL (0.0-0.2) Segmented Neutrophils % 88 % (35-66) Band Neutrophils % 5 % (0-9) Lymphocytes % 5 % (24-48) Monocytes % 2 % (0-10) Platelet Estimate Adequate (ADEQUATE) Prothrombin Time 14.2 SEC (11.7-14.0) Prothromb Time International Ratio 1.1 (0.8-1.1) Activated Partial Thromboplast Time 25 SEC (24-38) D-Dimer (Dotty) 4.60 ug/mlFEU (0.00-0.50) Sodium Level 136 mmol/L (136-145) 135 mmol/L (136-145) Potassium Level 3.8 mmol/L (3.5-5.1) 4.1 mmol/L (3.5-5.1) Chloride Level 102 mmol/L (98-107) 105 mmol/L (98-107) Carbon Dioxide Level 21 mmol/L (21-32) 21 mmol/L (21-32) Anion Gap 13 (6-14) 9 (6-14) Blood Urea Nitrogen 20 mg/dL (8-26) 23 mg/dL (8-26) Creatinine 2.0 mg/dL (0.7-1.3) 2.0 mg/dL (0.7-1.3) Estimated GFR (Cockcroft-Gault) 31.6 31.6 BUN/Creatinine Ratio 10 (6-20) Glucose Level 119 mg/dL (70-99) 139 mg/dL (70-99) Lactic Acid Level 1.8 mmol/L (0.4-2.0) Calcium Level 8.6 mg/dL (8.5-10.1) 8.5 mg/dL (8.5-10.1) Magnesium Level 1.6 mg/dL (1.8-2.4) Ferritin 82 ng/mL (26-388) Total Bilirubin 1.2 mg/dL (0.2-1.0) Aspartate Amino Transf (AST/SGOT) 16 U/L (15-37) Alanine Aminotransferase (ALT/SGPT) 16 U/L (16-63) Alkaline Phosphatase 77 U/L (46-116) Lactate Dehydrogenase 324 U/L (85-227) Creatine Kinase 101 U/L (39-308) Creatine Kinase MB (Mass) 0.6 ng/mL (0.0-3.6) Creatine Kinase MB Relative Index 0.6 % (0-4) Troponin I Quantitative 0.019 ng/mL (0.000-0.055) 0.044 ng/mL (0.000-0.055) GB-Zvj-A-Type Natriuretic Peptide 2358 pg/mL (0-449) Total Protein 7.2 g/dL (6.4-8.2) Albumin 3.0 g/dL (3.4-5.0) Albumin/Globulin Ratio 0.7 (1.0-1.7) Urine Collection Type Unknown Urine Color Yellow Urine Clarity Clear Urine pH 6.0 (<5.0-8.0) Urine Specific [place] 1.010 (1.000-1.030) Urine Protein Negative mg/dL (NEG-TRACE) Urine Glucose (UA) Negative mg/dL (NEG) Urine Ketones (Stick) Negative mg/dL (NEG) Urine Blood Small (NEG) Urine Nitrite Negative (NEG) Urine Bilirubin Negative (NEG) Urine Urobilinogen Dipstick 0.2 mg/dL (0.2 mg/dL) Urine Leukocyte Esterase Large (NEG) Urine RBC 3-5 /HPF (0-2) Urine WBC 11-20 /HPF (0-4) Urine Squamous Epithelial Cells Occ /LPF Urine Amorphous Sediment Present /HPF Urine Bacteria Moderate /HPF (0-FEW) Urine Mucus Slight /LPF Laboratory Tests Test 11/23/19 23:40 11/23/19 23:50 11/24/19 04:02 11/24/19 09:11 White Blood Count 14.4 x10^3/uL (4.0-11.0) 17.2 x10^3/uL (4.0-11.0) Red Blood Count 4.63 x10^6/uL (4.30-5.70) 4.08 x10^6/uL (4.30-5.70) Hemoglobin 13.5 g/dL (13.0-17.5) 12.1 g/dL (13.0-17.5) Hematocrit 40.4 % (39.0-53.0) 36.0 % (39.0-53.0) Mean Corpuscular Volume 87 fL (79-100) 88 fL (79-100) Mean Corpuscular Hemoglobin 29 pg (25-35) 30 pg (25-35) Mean Corpuscular Hemoglobin Concent 34 g/dL (31-37) 34 g/dL (31-37) Red Cell Distribution Width 14.2 % (11.5-14.5) 14.6 % (11.5-14.5) Platelet Count 199 x10^3/uL (140-400) 196 x10^3/uL (140-400) Neutrophils (%) (Auto) 91 % (31-73) 74 % (31-73) Lymphocytes (%) (Auto) 5 % (24-48) 14 % (24-48) Monocytes (%) (Auto) 5 % (0-9) 11 % (0-9) Eosinophils (%) (Auto) 0 % (0-3) 0 % (0-3) Basophils (%) (Auto) 0 % (0-3) 1 % (0-3) Neutrophils # (Auto) 13.1 x10^3/uL (1.8-7.7) 12.8 x10^3/uL (1.8-7.7) Lymphocytes # (Auto) 0.7 x10^3/uL (1.0-4.8) 2.4 x10^3/uL (1.0-4.8) Monocytes # (Auto) 0.7 x10^3/uL (0.0-1.1) 1.9 x10^3/uL (0.0-1.1) Eosinophils # (Auto) 0.0 x10^3/uL (0.0-0.7) 0.0 x10^3/uL (0.0-0.7) Basophils # (Auto) 0.0 x10^3/uL (0.0-0.2) 0.1 x10^3/uL (0.0-0.2) Segmented Neutrophils % 88 % (35-66) Band Neutrophils % 5 % (0-9) Lymphocytes % 5 % (24-48) Monocytes % 2 % (0-10) Platelet Estimate Adequate (ADEQUATE) Prothrombin Time 14.2 SEC (11.7-14.0) Prothromb Time International Ratio 1.1 (0.8-1.1) Activated Partial Thromboplast Time 25 SEC (24-38) D-Dimer (Dotty) 4.60 ug/mlFEU (0.00-0.50) Sodium Level 136 mmol/L (136-145) 135 mmol/L (136-145) Potassium Level 3.8 mmol/L (3.5-5.1) 4.1 mmol/L (3.5-5.1) Chloride Level 102 mmol/L (98-107) 105 mmol/L (98-107) Carbon Dioxide Level 21 mmol/L (21-32) 21 mmol/L (21-32) Anion Gap 13 (6-14) 9 (6-14) Blood Urea Nitrogen 20 mg/dL (8-26) 23 mg/dL (8-26) Creatinine 2.0 mg/dL (0.7-1.3) 2.0 mg/dL (0.7-1.3) Estimated GFR (Cockcroft-Gault) 31.6 31.6 BUN/Creatinine Ratio 10 (6-20) Glucose Level 119 mg/dL (70-99) 139 mg/dL (70-99) Lactic Acid Level 1.8 mmol/L (0.4-2.0) Calcium Level 8.6 mg/dL (8.5-10.1) 8.5 mg/dL (8.5-10.1) Magnesium Level 1.6 mg/dL (1.8-2.4) Ferritin 82 ng/mL (26-388) Total Bilirubin 1.2 mg/dL (0.2-1.0) Aspartate Amino Transf (AST/SGOT) 16 U/L (15-37) Alanine Aminotransferase (ALT/SGPT) 16 U/L (16-63) Alkaline Phosphatase 77 U/L (46-116) Lactate Dehydrogenase 324 U/L (85-227) Creatine Kinase 101 U/L (39-308) Creatine Kinase MB (Mass) 0.6 ng/mL (0.0-3.6) Creatine Kinase MB Relative Index 0.6 % (0-4) Troponin I Quantitative 0.019 ng/mL (0.000-0.055) 0.044 ng/mL (0.000-0.055) ZU-Tyf-S-Type Natriuretic Peptide 2358 pg/mL (0-449) Total Protein 7.2 g/dL (6.4-8.2) Albumin 3.0 g/dL (3.4-5.0) Albumin/Globulin Ratio 0.7 (1.0-1.7) Urine Collection Type Unknown Urine Color Yellow Urine Clarity Clear Urine pH 6.0 (<5.0-8.0) Urine Specific [place] 1.010 (1.000-1.030) Urine Protein Negative mg/dL (NEG-TRACE) Urine Glucose (UA) Negative mg/dL (NEG) Urine Ketones (Stick) Negative mg/dL (NEG) Urine Blood Small (NEG) Urine Nitrite Negative (NEG) Urine Bilirubin Negative (NEG) Urine Urobilinogen Dipstick 0.2 mg/dL (0.2 mg/dL) Urine Leukocyte Esterase Large (NEG) Urine RBC 3-5 /HPF (0-2) Urine WBC 11-20 /HPF (0-4) Urine Squamous Epithelial Cells Occ /LPF Urine Amorphous Sediment Present /HPF Urine Bacteria Moderate /HPF (0-FEW) Urine Mucus Slight /LPF Images Images EXAM: CHEST 1 VIEW History: Shortness of breath COMPARISON: None available. TECHNIQUE: Single portable radiograph of the chest FINDINGS: The cardiac silhouette is unremarkable. Left-sided cardiac pacer is identified. Mild bibasilar lung airspace opacities likely atelectasis or infiltrates. IMPRESSION: Mild bibasilar lung airspace opacities likely atelectasis or infiltrates. VTE Prophylaxis Ordered VTE Prophylaxis Devices: No VTE Pharmacological Prophylaxi: Yes Assessment/Plan Assessment/Plan Sepsis, UTI, community-acquired pneumonia, acute on chronic renal failure, elevated d-dimer Plan: Continue IV cefepime to cover for possible community-acquired pneumonia and UTI. Patient received appropriate fluid boluses and broad-spectrum antibiotics. Will avoid nephrotoxins given acute on chronic renal failure. IV normal saline, Tylenol as needed. I believe his elevated d-dimer is likely secondary to his renal disease and less likely PE given that he is no longer tachypneic or tachycardic, and breathing comfortably on room air. Skin is not mottled, no further clinical signs of sepsis. VTE prophylaxis. Patient son is is DPOA and confirms patient is DNR. Justifications for Admission Other Justification LUKAS BURGER MD Nov 24, 2019 10:39
[2019-11-24] MEDS: busPIRone 10 MG TABLET. PO SCH ×2 (11:00→20:06)
[2019-11-24] MEDS: QUEtiapine 25 MG TABLET. PO SCH ×2 (11:00→20:07)
[2019-11-24] MEDS: FINASTERIDE 5 MG TABLET. PO SCH (11:00)
[2019-11-24] MEDS ORDERED: CEFEPIME HCL IV Push 2 GM VIAL. IVP SCH (11:00)
[2019-11-24] MEDS: SERTRALINE 50 MG TABLET. PO SCH (11:00)
[2019-11-24] MEDS: MEMANTINE 10 MG TABLET. PO SCH ×2 (11:00→20:06)
[2019-11-24] MEDS: LEVOTHYROXINE 25 MCG TABLET. PO SCH (11:00)
--- NOTE | 2019-11-24 11:00 | NUR ---
This RN tried to put heart monitor on patient but when applying sticker for lead, he swung his arms and pushed me away.
--- NOTE | 2019-11-24 11:45 | NUR ---
Pt refusing to let STAFF RN get blood pressure and temperature at this time.
[2019-11-24] MEDS: IV NORMAL SALINE 1000ML BAG 1,000 ML IV SCH ×2 (12:07→20:06)
--- NOTE | 2019-11-24 13:04 | NUR ---
SW following. Spoke with RN and reviewed chart. CM notified this SW that pt is on hospice. Pt currently on room air, cardiac diet and IV Zosyn. YONATAN spoke with Crystal the nurse at [facility] where pt resides in LTC. Crystal confirmed that pt is on hospice with [facility]. YNOATAN called and spoke with Lorena from hospice ([phone]) who stated son Jose D ([phone]) revoked hospice services. YONATAN requested that Lorena fax a copy of revocation paperwork. YONATAN LVM for son to see what the POC will be. SW following. [facility] [address] [place] [phone] (phone) [phone] (fax)
--- NOTE | 2019-11-24 15:25 | EKG ---
[facility] [address] [place] [address] Test Date: 2019-11-24 Test Time: 01:15:22 Pat Name: CAROL VAN Department: Room: Gender: M [employer]: : 1930 Requested By: DANILO MARIO Order Number: [id number] Reading MD: Measurements Intervals [place] Rate: 91 P: 44 FL: 226 QRS: -78 QRSD: 162 T: 73 QT: 404 QTc: 499 Interpretive Statements SINUS RHYTHM PROLONGED FL INTERVAL ABNORMAL LEFT AXIS DEVIATION NON SPECIFIC INTRAVENTRICULAR BLOCK QRS(T) CONTOUR ABNORMALITY CONSISTENT WITH ANTEROSEPTAL INFARCT PROBABLY OLD ABNORMAL ECG RI6.02 No previous ECG available for comparison
--- NOTE | 2019-11-24 15:30 | NUR ---
Pt refused to let COLLAR BAND CREASER get vital signs.
--- NOTE | 2019-11-24 16:56 | PDOC ---
Infectious Disease Note Vital Sign Vital Signs Vital Signs Date Time Temp Pulse Resp B/P (MAP) Pulse Ox O2 Delivery O2 Flow Rate FiO2 11/24/19 15:00 18 Room Air 11/24/19 07:15 101/46 (64) 11/24/19 03:50 67 97 11/23/19 23:35 101.2 101.2 Labs Lab Laboratory Tests Test 11/23/19 23:40 11/23/19 23:50 11/24/19 04:02 11/24/19 09:11 White Blood Count 14.4 x10^3/uL (4.0-11.0) 17.2 x10^3/uL (4.0-11.0) Red Blood Count 4.63 x10^6/uL (4.30-5.70) 4.08 x10^6/uL (4.30-5.70) Hemoglobin 13.5 g/dL (13.0-17.5) 12.1 g/dL (13.0-17.5) Hematocrit 40.4 % (39.0-53.0) 36.0 % (39.0-53.0) Mean Corpuscular Volume 87 fL (79-100) 88 fL (79-100) Mean Corpuscular Hemoglobin 29 pg (25-35) 30 pg (25-35) Mean Corpuscular Hemoglobin Concent 34 g/dL (31-37) 34 g/dL (31-37) Red Cell Distribution Width 14.2 % (11.5-14.5) 14.6 % (11.5-14.5) Platelet Count 199 x10^3/uL (140-400) 196 x10^3/uL (140-400) Neutrophils (%) (Auto) 91 % (31-73) 74 % (31-73) Lymphocytes (%) (Auto) 5 % (24-48) 14 % (24-48) Monocytes (%) (Auto) 5 % (0-9) 11 % (0-9) Eosinophils (%) (Auto) 0 % (0-3) 0 % (0-3) Basophils (%) (Auto) 0 % (0-3) 1 % (0-3) Neutrophils # (Auto) 13.1 x10^3/uL (1.8-7.7) 12.8 x10^3/uL (1.8-7.7) Lymphocytes # (Auto) 0.7 x10^3/uL (1.0-4.8) 2.4 x10^3/uL (1.0-4.8) Monocytes # (Auto) 0.7 x10^3/uL (0.0-1.1) 1.9 x10^3/uL (0.0-1.1) Eosinophils # (Auto) 0.0 x10^3/uL (0.0-0.7) 0.0 x10^3/uL (0.0-0.7) Basophils # (Auto) 0.0 x10^3/uL (0.0-0.2) 0.1 x10^3/uL (0.0-0.2) Segmented Neutrophils % 88 % (35-66) Band Neutrophils % 5 % (0-9) Lymphocytes % 5 % (24-48) Monocytes % 2 % (0-10) Platelet Estimate Adequate (ADEQUATE) Prothrombin Time 14.2 SEC (11.7-14.0) Prothromb Time International Ratio 1.1 (0.8-1.1) Activated Partial Thromboplast Time 25 SEC (24-38) D-Dimer (Dotty) 4.60 ug/mlFEU (0.00-0.50) Sodium Level 136 mmol/L (136-145) 135 mmol/L (136-145) Potassium Level 3.8 mmol/L (3.5-5.1) 4.1 mmol/L (3.5-5.1) Chloride Level 102 mmol/L (98-107) 105 mmol/L (98-107) Carbon Dioxide Level 21 mmol/L (21-32) 21 mmol/L (21-32) Anion Gap 13 (6-14) 9 (6-14) Blood Urea Nitrogen 20 mg/dL (8-26) 23 mg/dL (8-26) Creatinine 2.0 mg/dL (0.7-1.3) 2.0 mg/dL (0.7-1.3) Estimated GFR (Cockcroft-Gault) 31.6 31.6 BUN/Creatinine Ratio 10 (6-20) Glucose Level 119 mg/dL (70-99) 139 mg/dL (70-99) Lactic Acid Level 1.8 mmol/L (0.4-2.0) Calcium Level 8.6 mg/dL (8.5-10.1) 8.5 mg/dL (8.5-10.1) Magnesium Level 1.6 mg/dL (1.8-2.4) Ferritin 82 ng/mL (26-388) Total Bilirubin 1.2 mg/dL (0.2-1.0) Aspartate Amino Transf (AST/SGOT) 16 U/L (15-37) Alanine Aminotransferase (ALT/SGPT) 16 U/L (16-63) Alkaline Phosphatase 77 U/L (46-116) Lactate Dehydrogenase 324 U/L (85-227) Creatine Kinase 101 U/L (39-308) Creatine Kinase MB (Mass) 0.6 ng/mL (0.0-3.6) Creatine Kinase MB Relative Index 0.6 % (0-4) Troponin I Quantitative 0.019 ng/mL (0.000-0.055) 0.044 ng/mL (0.000-0.055) OK-Lnd-H-Type Natriuretic Peptide 2358 pg/mL (0-449) Total Protein 7.2 g/dL (6.4-8.2) Albumin 3.0 g/dL (3.4-5.0) Albumin/Globulin Ratio 0.7 (1.0-1.7) Urine Collection Type Unknown Urine Color Yellow Urine Clarity Clear Urine pH 6.0 (<5.0-8.0) Urine Specific [place] 1.010 (1.000-1.030) Urine Protein Negative mg/dL (NEG-TRACE) Urine Glucose (UA) Negative mg/dL (NEG) Urine Ketones (Stick) Negative mg/dL (NEG) Urine Blood Small (NEG) Urine Nitrite Negative (NEG) Urine Bilirubin Negative (NEG) Urine Urobilinogen Dipstick 0.2 mg/dL (0.2 mg/dL) Urine Leukocyte Esterase Large (NEG) Urine RBC 3-5 /HPF (0-2) Urine WBC 11-20 /HPF (0-4) Urine Squamous Epithelial Cells Occ /LPF Urine Amorphous Sediment Present /HPF Urine Bacteria Moderate /HPF (0-FEW) Urine Mucus Slight /LPF Micro Microbiology 11/23/19 Blood Culture - Final, Complete Objective Assessment pt seen, consult dictated Plan Plan of Care / MIRIAN HELTON MD Nov 24, 2019 16:56
[2019-11-24] MEDS: CEFEPIME HCL IV Push 1 GM VIAL. IVP SCH (20:05)
[2019-11-24] MEDS: LACTOBACILLUS RHAMNOSUS GG 1 CAPSULE. PO SCH (20:06)
[2019-11-24] MEDS: TAMSULOSIN 0.4 MG CAP.ER.24H. PO SCH (20:06)
[2019-11-24] MEDS ORDERED: NON FORMULARY ITEM (Melatonin 3 MG) PO SCH (21:00)
--- NOTE | 2019-11-24 21:49 | CONS ---
DATE OF CONSULTATION: 11/24/2019 REQUESTING PHYSICIAN: Dr. Nicolás Alejandro. REASON FOR CONSULTATION: Gram-negative sepsis. HISTORY OF PRESENT ILLNESS: This is an 89-year-old gentleman who has dementia for longtime, nonverbal, who was on hospice in the long-term. The patient became lethargic, hence the family panicked and rescinded hospice and asked them to transfer to the hospital. The patient is alert, but nonverbal and does not allow the nurses to do anything. On my visit with him, he was able to push everybody off from his hand. The patient did have a fever up to 101.2 and gram-negative woo in the blood. Urinalysis showed 11-20 wbc's. White count of 17,000 and creatinine of 2. One dose of Zosyn was given and the patient is on cefepime right now. No nausea, vomiting, diarrhea noted by nursing. PAST MEDICAL HISTORY: Positive for dementia for almost 10 years. 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 SOCIAL HISTORY: The patient is a total care in a long-term. CURRENT MEDICATIONS: Reviewed. ALLERGIES: No known drug allergies. REVIEW OF SYSTEMS: As per HPI through the patient's nurses. This patient is not able to provide. PHYSICAL EXAMINATION: GENERAL: Awake gentleman, not in any distress. VITAL SIGNS: Stable with a temperature of 101.2, pulse 80, respirations 20, blood pressure 95/52. HEENT: Both pupils are round and reacting. No conjunctival lesion. NECK: Supple. LUNGS: Clear. HEART: S1, S2 regular. ABDOMEN: Very limited by the patient continuously pushing me away. EXTREMITIES: No edema or cyanosis. SKIN: Unremarkable. NEUROLOGIC: The patient is awake, does move all the extremities, nonverbal and pushes people away. LABORATORY DATA: White count is 17.2, hemoglobin 12.1, platelets are normal. BUN and creatinine is 20 and 2.0, lactic acid 1.8. Urinalysis 11-20 wbc's. Blood culture with gram-negative woo, identification is pending. Chest x-ray is unremarkable other than atelectasis. IMPRESSION: 1. Gram-negative sepsis. 2. Fever. 3. Leukocytosis. 4. Urinary tract infection with sepsis. 5. Advanced dementia. 6. Renal insufficiency. RECOMMENDATIONS: Continue cefepime. We will follow the cultures. Supportive care and the patient should be actually ideally hospice, but for the time being, the patient is DNR/DNI. We will continue to follow. Thank you very much, Dr. Alejandro, for giving me the opportunity to participate in this patient's care. MIRIAN HELTON MD DR: RONAK/sandra JOB#: [id number] / [id number]
[2019-11-25] MEDS: LEVOTHYROXINE 25 MCG TABLET. PO SCH (05:02)
--- NOTE | 2019-11-25 05:02 | NUR ---
Patient refuses oral medications, refuses monitoring and evaluation advisor to placed
[2019-11-25] MEDS: IV NORMAL SALINE 1000ML BAG 1,000 ML IV SCH ×2 (06:15→15:54)
[2019-11-25 07:00] VITALS: BP 132/51
[2019-11-25 07:10] VITALS: BP 137/79
[2019-11-25 08:18] LABS: CALCIUM 8.5 mg/dL (8.5-10.1); CREATININE 1.8 mg/dL (0.7-1.3); GFR 35.7; POTASSIUM 3.8 mmol/L (3.5-5.1)
[2019-11-25 08:28] LABS: BASO # 0.1 x10^3/uL (0.0-0.2); BASO % 0 % (0-3); EOS # 0.1 x10^3/uL (0.0-0.7); EOS % 1 % (0-3); HEMATOCRIT 38.4 % (39.0-53.0); HEMOGLOBIN 13.2 g/dL (13.0-17.5); LYMPH # 2.2 x10^3/uL (1.0-4.8); LYMPH % 18 % (24-48); MEAN CORPUSCULAR HEMOGLOBIN 30 pg (25-35); MEAN CORPUSCULAR HGB CONC 34 g/dL (31-37); MEAN CORPUSCULAR VOLUME 88 fL (79-100); MONO # 1.6 x10^3/uL (0.0-1.1); MONO % 13 % (0-9); NEUT # 8.7 x10^3/uL (1.8-7.7); NEUT % 69 % (31-73); PLATELET COUNT 195 x10^3/uL (140-400); RED BLOOD COUNT 4.35 x10^6/uL (4.30-5.70); RED CELL DISTRIBUTION WIDTH 14.6 % (11.5-14.5); WHITE BLOOD COUNT 12.6 x10^3/uL (4.0-11.0)
[2019-11-25] MEDS: QUEtiapine 25 MG TABLET. PO SCH ×3 (09:00→19:52)
[2019-11-25] MEDS: FINASTERIDE 5 MG TABLET. PO SCH ×2 (09:00→09:54)
[2019-11-25] MEDS: busPIRone 10 MG TABLET. PO SCH ×3 (09:00→19:52)
[2019-11-25] MEDS: SERTRALINE 50 MG TABLET. PO SCH ×2 (09:00→09:54)
[2019-11-25] MEDS: LACTOBACILLUS RHAMNOSUS GG 1 CAPSULE. PO SCH ×3 (09:00→19:52)
[2019-11-25] MEDS: MEMANTINE 10 MG TABLET. PO SCH ×3 (09:00→19:52)
[2019-11-25] MEDS: CEFEPIME HCL IV Push 1 GM VIAL. IVP SCH ×3 (09:00→20:54)
--- NOTE | 2019-11-25 09:45 | NUR ---
This RN tried to give patient PO medications and his IV antibiotic and pt swatted his arms and pushed this RN hand away from his IV. Attempted to do an assessment with stethoscope and patient refused, pt also refused to let this RN put heart monitor on. Pt would only tolerate blood pressure reading. notified. Will continue to monitor.
--- NOTE | 2019-11-25 10:59 | PDOC ---
Infectious Disease Note Subjective Subjective pt is not allowing any one to treat him. Family aware, they decided back to hospice. Vital Sign Vital Signs Vital Signs Date Time Temp Pulse Resp B/P (MAP) Pulse Ox O2 Delivery O2 Flow Rate FiO2 11/25/19 07:10 137/79 (98) 11/25/19 07:00 71 95 Room Air 11/24/19 19:59 16 Labs Lab Laboratory Tests Test 11/25/19 07:45 White Blood Count 12.6 x10^3/uL (4.0-11.0) Red Blood Count 4.35 x10^6/uL (4.30-5.70) Hemoglobin 13.2 g/dL (13.0-17.5) Hematocrit 38.4 % (39.0-53.0) Mean Corpuscular Volume 88 fL (79-100) Mean Corpuscular Hemoglobin 30 pg (25-35) Mean Corpuscular Hemoglobin Concent 34 g/dL (31-37) Red Cell Distribution Width 14.6 % (11.5-14.5) Platelet Count 195 x10^3/uL (140-400) Neutrophils (%) (Auto) 69 % (31-73) Lymphocytes (%) (Auto) 18 % (24-48) Monocytes (%) (Auto) 13 % (0-9) Eosinophils (%) (Auto) 1 % (0-3) Basophils (%) (Auto) 0 % (0-3) Neutrophils # (Auto) 8.7 x10^3/uL (1.8-7.7) Lymphocytes # (Auto) 2.2 x10^3/uL (1.0-4.8) Monocytes # (Auto) 1.6 x10^3/uL (0.0-1.1) Eosinophils # (Auto) 0.1 x10^3/uL (0.0-0.7) Basophils # (Auto) 0.1 x10^3/uL (0.0-0.2) Sodium Level 136 mmol/L (136-145) Potassium Level 3.8 mmol/L (3.5-5.1) Chloride Level 105 mmol/L (98-107) Carbon Dioxide Level 20 mmol/L (21-32) Anion Gap 11 (6-14) Blood Urea Nitrogen 25 mg/dL (8-26) Creatinine 1.8 mg/dL (0.7-1.3) Estimated GFR (Cockcroft-Gault) 35.7 Glucose Level 97 mg/dL (70-99) Calcium Level 8.5 mg/dL (8.5-10.1) Micro Microbiology 11/23/19 Blood Culture - Final, Complete Objective Assessment / Plan Plan of Care / MIRIAN HELTON MD Nov 25, 2019 10:59
--- NOTE | 2019-11-25 11:05 | NUR ---
SW following. Spoke with RN and reviewed chart. Pt refusing oral medications and swats at the nurse. YONATAN spoke with pt's son Jose D at length. Jose D reported that the [facility] has not been allowing hospice in the building to care for pt. YONATAN spoke with facility [facility] at length who stated that hospice was coming in on a [id number] basis and that pt had not warranted routine visits and only emergent visits. YONATAN explained that pt refusing medications. MALORIE stated pt will take medications from their staff and that they will accept him back into LTC with hospice on oral abx once COVID results are back. YONATAN spoke with Lorena from [facility] to confirm this discharge plan. Update to RN, Dr. Alejandro and Dr. Hui. SW awaiting COVID results for pt to discharge. YONATAN did LVM for jose Khalil ([phone]) to update/coordinate care. [facility] [address] [place] [address] (phone) [phone] (fax) [facility] [phone] (phone) [phone] (fax) Addendum: 11/25/19 at 1705 by LILY TAM Pt remains COVID pending. Possible discharge back to LTC with hospice on 11/25 pending COVID results.
[2019-11-25 11:20] VITALS: BP 146/67
--- NOTE | 2019-11-25 12:11 | PDOC ---
[employer] PROGRESS NOTE Date of Service DOS: DATE: 11/25/19 TIME: 12:07 Chief Complaint Chief Complaint Fever History of Present Illness History of Present Illness Patient is having some diarrhea. Will evaluate with seizures. Gram-negative rods in 3-4 bottles, consulted infectious disease. Discussed with RN, family is agreeable to discharge to a hospice facility pending COVID negative results. Vitals/I&O Vitals/I&O: Vital Signs Date Time Temp Pulse Resp B/P (MAP) Pulse Ox O2 Delivery O2 Flow Rate FiO2 11/25/19 08:00 Room Air 11/25/19 07:10 137/79 (98) 11/25/19 07:00 71 95 11/24/19 19:59 16 I & O 11/24/19 11/24/19 11/25/19 15:00 23:00 07:00 Intake Total 50 ml 50 ml 600 ml Balance 50 ml 50 ml 600 ml Physical Exam General: Alert, No acute distress Heart: Regular rate Lungs: Clear Abdomen: Normal bowel sounds, No tenderness Extremities: No clubbing, No cyanosis Skin: No rashes Labs Labs: Laboratory Tests Test 11/25/19 07:45 White Blood Count 12.6 x10^3/uL (4.0-11.0) Red Blood Count 4.35 x10^6/uL (4.30-5.70) Hemoglobin 13.2 g/dL (13.0-17.5) Hematocrit 38.4 % (39.0-53.0) Mean Corpuscular Volume 88 fL (79-100) Mean Corpuscular Hemoglobin 30 pg (25-35) Mean Corpuscular Hemoglobin Concent 34 g/dL (31-37) Red Cell Distribution Width 14.6 % (11.5-14.5) Platelet Count 195 x10^3/uL (140-400) Neutrophils (%) (Auto) 69 % (31-73) Lymphocytes (%) (Auto) 18 % (24-48) Monocytes (%) (Auto) 13 % (0-9) Eosinophils (%) (Auto) 1 % (0-3) Basophils (%) (Auto) 0 % (0-3) Neutrophils # (Auto) 8.7 x10^3/uL (1.8-7.7) Lymphocytes # (Auto) 2.2 x10^3/uL (1.0-4.8) Monocytes # (Auto) 1.6 x10^3/uL (0.0-1.1) Eosinophils # (Auto) 0.1 x10^3/uL (0.0-0.7) Basophils # (Auto) 0.1 x10^3/uL (0.0-0.2) Sodium Level 136 mmol/L (136-145) Potassium Level 3.8 mmol/L (3.5-5.1) Chloride Level 105 mmol/L (98-107) Carbon Dioxide Level 20 mmol/L (21-32) Anion Gap 11 (6-14) Blood Urea Nitrogen 25 mg/dL (8-26) Creatinine 1.8 mg/dL (0.7-1.3) Estimated GFR (Cockcroft-Gault) 35.7 Glucose Level 97 mg/dL (70-99) Calcium Level 8.5 mg/dL (8.5-10.1) Review of Systems Review of Systems: Unable to obtain due to clinical condition Assessment and Plan Assessmemt and Plan Problems Medical Problems: (1) Elevated d-dimer Status: Acute (2) Hypomagnesemia Status: Acute Plan: Son is DPOA, agreeable to discharge to inpatient hospice pending negative COVID. Comment Review of Relevant I have reviewed the following items valeria (where applicable) has been applied. Medications: Current Medications Medications (Trade) Dose Ordered Sig/Sunita Route PRN Reason Start Time Stop Time Status Last Admin Dose Admin Lorazepam (Ativan Inj) 1 mg 1X ONCE IVP 11/24/19 13:15 11/24/19 13:16 DC 11/25/19 11:58 Cefepime HCl (Maxipime) 1 gm Q12HR IVP 11/24/19 21:00 11/24/19 20:05 Justifications for Admission Other Justification LUKAS BURGER MD Nov 25, 2019 12:11
[2019-11-25 15:27] VITALS: BP 146/67
[2019-11-25] MEDS: TAMSULOSIN 0.4 MG CAP.ER.24H. PO SCH (19:52)
[2019-11-26] MEDS: IV NORMAL SALINE 1000ML BAG 1,000 ML IV SCH ×2 (02:15→12:15)
[2019-11-26 03:56] LABS: BASO % 0 % (0-3); EOS # 0.2 x10^3/uL (0.0-0.7); EOS % 2 % (0-3); HEMATOCRIT 36.5 % (39.0-53.0); HEMOGLOBIN 12.3 g/dL (13.0-17.5); LYMPH # 1.5 x10^3/uL (1.0-4.8); LYMPH % 18 % (24-48); MEAN CORPUSCULAR HEMOGLOBIN 30 pg (25-35); MEAN CORPUSCULAR HGB CONC 34 g/dL (31-37); MEAN CORPUSCULAR VOLUME 89 fL (79-100); MONO # 1.4 x10^3/uL (0.0-1.1); MONO % 17 % (0-9); NEUT # 5.3 x10^3/uL (1.8-7.7); NEUT % 63 % (31-73); PLATELET COUNT 178 x10^3/uL (140-400); RED BLOOD COUNT 4.13 x10^6/uL (4.30-5.70); RED CELL DISTRIBUTION WIDTH 14.3 % (11.5-14.5); WHITE BLOOD COUNT 8.4 x10^3/uL (4.0-11.0)
[2019-11-26 04:10] LABS: CALCIUM 8.4 mg/dL (8.5-10.1); CREATININE 1.5 mg/dL (0.7-1.3); GFR 44.1; POTASSIUM 3.7 mmol/L (3.5-5.1)
[2019-11-26 04:18] VITALS: BP 148/57
[2019-11-26] MEDS: LEVOTHYROXINE 25 MCG TABLET. PO SCH (06:00)
[2019-11-26 07:20] VITALS: BP 174/80
[2019-11-26] MEDS: FINASTERIDE 5 MG TABLET. PO SCH (09:00)
[2019-11-26] MEDS: MEMANTINE 10 MG TABLET. PO SCH (09:00)
[2019-11-26] MEDS: busPIRone 10 MG TABLET. PO SCH (09:00)
[2019-11-26] MEDS: SERTRALINE 50 MG TABLET. PO SCH (09:00)
[2019-11-26] MEDS: QUEtiapine 25 MG TABLET. PO SCH (09:00)
[2019-11-26] MEDS: LACTOBACILLUS RHAMNOSUS GG 1 CAPSULE. PO SCH (09:00)
--- NOTE | 2019-11-26 09:54 | PDOC ---
Infectious Disease Note Subjective Subjective pt is not allowing any one to treat him. Family aware, they decided back to hospice. [facility] says they will do hospice, and will convince oral meds to pt ROS ROS no n/v/d/ Vital Sign Vital Signs Vital Signs Date Time Temp Pulse Resp B/P (MAP) Pulse Ox O2 Delivery O2 Flow Rate FiO2 11/26/19 08:00 Room Air 11/26/19 07:20 98.1 65 174/80 (111) 98.1 11/25/19 15:27 96 Physical Exam PHYSICAL EXAM GENERAL: Awake gentleman, not in any distress. VITAL SIGNS: Stable HEENT: Both pupils are round and reacting. No conjunctival lesion. NECK: Supple. LUNGS: Clear. HEART: S1, S2 regular. ABDOMEN: Very limited by the patient continuously pushing me away. EXTREMITIES: No edema or cyanosis. SKIN: Unremarkable. NEUROLOGIC: The patient is awake, does move all the extremities, nonverbal and pushes people away. Labs Lab Laboratory Tests Test 11/26/19 03:15 White Blood Count 8.4 x10^3/uL (4.0-11.0) Red Blood Count 4.13 x10^6/uL (4.30-5.70) Hemoglobin 12.3 g/dL (13.0-17.5) Hematocrit 36.5 % (39.0-53.0) Mean Corpuscular Volume 89 fL (79-100) Mean Corpuscular Hemoglobin 30 pg (25-35) Mean Corpuscular Hemoglobin Concent 34 g/dL (31-37) Red Cell Distribution Width 14.3 % (11.5-14.5) Platelet Count 178 x10^3/uL (140-400) Neutrophils (%) (Auto) 63 % (31-73) Lymphocytes (%) (Auto) 18 % (24-48) Monocytes (%) (Auto) 17 % (0-9) Eosinophils (%) (Auto) 2 % (0-3) Basophils (%) (Auto) 0 % (0-3) Neutrophils # (Auto) 5.3 x10^3/uL (1.8-7.7) Lymphocytes # (Auto) 1.5 x10^3/uL (1.0-4.8) Monocytes # (Auto) 1.4 x10^3/uL (0.0-1.1) Eosinophils # (Auto) 0.2 x10^3/uL (0.0-0.7) Basophils # (Auto) 0.0 x10^3/uL (0.0-0.2) Sodium Level 137 mmol/L (136-145) Potassium Level 3.7 mmol/L (3.5-5.1) Chloride Level 105 mmol/L (98-107) Carbon Dioxide Level 22 mmol/L (21-32) Anion Gap 10 (6-14) Blood Urea Nitrogen 23 mg/dL (8-26) Creatinine 1.5 mg/dL (0.7-1.3) Estimated GFR (Cockcroft-Gault) 44.1 Glucose Level 87 mg/dL (70-99) Calcium Level 8.4 mg/dL (8.5-10.1) Micro URINE CULTURE Final Final 60,000 CFU/ML GRAM POSITIVE COCCI on 11/25/19 at 1201 FINAL ID= [ENTEROCOCCUS FAECALIS] Testing Performed by: [address] [id number] For Inquires, the Physician may contact the Microbiology department at [phone] ENTEROCOCCUS FAECALIS Streptomycin Synergy Screen S Gentamicin Synergy Screen S ANTIMICROBIAL SUSCEPTIBILITY Final Comment POS BYRON TYPE 38 ENTEROCOCCUS FAECALIS ANTIBIOTIC RESULT INTERPRETATION AMPICILLIN <=2 S CIPROFLOXACIN <=1 S DAPTOMYCIN <=0.5 S NITROFURANTOIN <=32 S LINEZOLID <=1 S LEVOFLOXACIN <=1 S PENICILLIN 2 S TETRACYCLINE >8 R VANCOMYCIN 1 S Unless otherwise specified, Testing Performed by: [address] [address] For Inquires, the Physician may contact the Microbiology department at [phone] BLOOD CULTURE LC Preliminary Preliminary GRAM NEGATIVE RODS FINAL ID= [ESCHERICHIA COLI] ESCHERICHIA COLI Unless otherwise specified, Testing Performed by: [address] [address] For Inquires, the Physician may contact the Microbiology department at [phone] Objective Assessment IMPRESSION: 1. Gram-negative sepsis. 2. Fever. 3. Leukocytosis. 4. Urinary tract infection with sepsis. 5. Advanced dementia. 6. Renal insufficiency. Plan Plan of Care po augmentin d/c to [facility] on hospice MIRIAN HELTON MD Nov 26, 2019 09:54
--- NOTE | 2019-11-26 10:01 | PDOC ---
[employer] PROGRESS NOTE Date of Service DOS: DATE: 11/26/19 TIME: 09:57 Chief Complaint Chief Complaint Fever History of Present Illness History of Present Illness Discussed with RN. COVID-19 is negative. We will switch to p.o. antibiotics, per infectious disease. Leukocytosis is resolved. Discharged home today with hospice. Vitals/I&O Vitals/I&O: Vital Signs Date Time Temp Pulse Resp B/P (MAP) Pulse Ox O2 Delivery O2 Flow Rate FiO2 11/26/19 08:00 Room Air 11/26/19 07:20 98.1 65 174/80 (111) 98.1 11/25/19 15:27 96 I & O 11/25/19 11/25/19 11/26/19 15:00 23:00 07:00 Intake Total 75 ml 0 ml Output Total 0 ml Balance 75 ml 0 ml 0 ml Physical Exam Physical Exam: GENERAL: Awake gentleman, not in any distress. VITAL SIGNS: Stable HEENT: Both pupils are round and reacting. No conjunctival lesion. NECK: Supple. LUNGS: Clear. HEART: S1, S2 regular. ABDOMEN: Very limited by the patient continuously pushing me away. EXTREMITIES: No edema or cyanosis. SKIN: Unremarkable. NEUROLOGIC: The patient is awake, does move all the extremities, nonverbal and pushes people away. General: Alert, No acute distress Heart: Regular rate Lungs: Clear Abdomen: Normal bowel sounds, No tenderness Extremities: No clubbing, No cyanosis Skin: No rashes Labs Labs: Laboratory Tests Test 11/26/19 03:15 White Blood Count 8.4 x10^3/uL (4.0-11.0) Red Blood Count 4.13 x10^6/uL (4.30-5.70) Hemoglobin 12.3 g/dL (13.0-17.5) Hematocrit 36.5 % (39.0-53.0) Mean Corpuscular Volume 89 fL (79-100) Mean Corpuscular Hemoglobin 30 pg (25-35) Mean Corpuscular Hemoglobin Concent 34 g/dL (31-37) Red Cell Distribution Width 14.3 % (11.5-14.5) Platelet Count 178 x10^3/uL (140-400) Neutrophils (%) (Auto) 63 % (31-73) Lymphocytes (%) (Auto) 18 % (24-48) Monocytes (%) (Auto) 17 % (0-9) Eosinophils (%) (Auto) 2 % (0-3) Basophils (%) (Auto) 0 % (0-3) Neutrophils # (Auto) 5.3 x10^3/uL (1.8-7.7) Lymphocytes # (Auto) 1.5 x10^3/uL (1.0-4.8) Monocytes # (Auto) 1.4 x10^3/uL (0.0-1.1) Eosinophils # (Auto) 0.2 x10^3/uL (0.0-0.7) Basophils # (Auto) 0.0 x10^3/uL (0.0-0.2) Sodium Level 137 mmol/L (136-145) Potassium Level 3.7 mmol/L (3.5-5.1) Chloride Level 105 mmol/L (98-107) Carbon Dioxide Level 22 mmol/L (21-32) Anion Gap 10 (6-14) Blood Urea Nitrogen 23 mg/dL (8-26) Creatinine 1.5 mg/dL (0.7-1.3) Estimated GFR (Cockcroft-Gault) 44.1 Glucose Level 87 mg/dL (70-99) Calcium Level 8.4 mg/dL (8.5-10.1) Review of Systems Review of Systems: Unable to obtain due to dementia Assessment and Plan Assessmemt and Plan Problems Medical Problems: (1) Elevated d-dimer Status: Acute (2) Hypomagnesemia Status: Acute Comment Review of Relevant I have reviewed the following items valeria (where applicable) has been applied. Medications: Current Medications Medications (Trade) Dose Ordered Sig/Sunita Route PRN Reason Start Time Stop Time Status Last Admin Dose Admin Lorazepam (Ativan Inj) 1 mg PRN Q6HRS PRN IVP ANXIETY / AGITATION 11/25/19 15:45 11/26/19 00:56 Justifications for Admission Other Justification LUKAS BURGER MD Nov 26, 2019 10:00
[2019-11-26] MEDS ORDERED: AMOX1TAB11 PO (10:06)
--- NOTE | 2019-11-26 10:14 | SNU/HH DC ---
DISCHARGE ORDERS DISCHARGE INFORMATION: FINAL DIAGNOSIS Problems Medical Problems: (1) Elevated d-dimer Status: Acute (2) Hypomagnesemia Status: Acute CONDITION ON DISCHARGE: Stable CODE STATUS: Code Status: DNR/DNI POST DISCHARGE ORDERS: ACTIVITY ORDERS: Activity as tolerated WEIGHT BEARING STATUS: As tolerated DIET AFTER DISCHARGE: Regular WOUND/INCISION CARE: Other, see below TREATMENT/EQUIPMENT ORDERS: Physical Therapy For: Evalulation/Treatment Occupational Therapy For: Evaluation/Treatment DISCHARGE MEDICATIONS: Home Meds Active Scripts Amoxicillin/Potassium Clav (AMOX TR-K CLV 875-125 MG TAB) 1 Each Tablet, 1 TAB PO BID for UTI for 5 Days, #10 TAB Prov:LUKAS BURGER MD 11/26/19 Finasteride (FINASTERIDE) 5 Mg Tablet, 5 MG PO DAILY for bph for 30 Days, #30 TAB Prov:DANILO PAPPAS MD 04/19/18 Levothyroxine Sodium (SYNTHROID) 25 Mcg Tablet, 25 MCG PO DAILY06 for low thyroid for 30 Days, #30 TAB Prov:DANILO PAPPAS MD 04/19/18 Tamsulosin Hcl (FLOMAX) 0.4 Mg Cap.er.24h, 0.4 MG PO QHS, #30 TAB Prov:DANILO PAPPAS MD 08/20/14 Reported Medications Sertraline Hcl (SERTRALINE HCL) 50 Mg Tablet, 50 MG PO DAILY for ANTI- DEPRESSANT, TAB 0 Refills 11/24/19 Quetiapine Fumarate (SEROQUEL) 50 Mg Tablet, 50 MG PO BID for agitation, TAB 11/24/19 Melatonin (MELATONIN) 3 Mg Tab.rapdis, 3 MG PO QHS for sleep, TAB 11/24/19 Buspirone Hcl (BUSPIRONE HCL) 10 Mg Tablet, 10 MG PO BID for axiety, TAB 11/24/19 Memantine Hcl (NAMENDA) 10 Mg Tablet, 1 TAB PO BID, #180 TAB 1 Refill 08/18/14 Discontinued Scripts Cephalexin (KEFLEX) 500 Mg Capsule, 500 MG PO TID for 7 Days, #21 CAP Prov:DANILO MARIO DO 05/14/18 Levofloxacin (LEVOFLOXACIN) 250 Mg Tablet, 250 MG PO DAILY06 for uti for 7 Days, #7 TAB Prov:DANILO PAPPAS MD 04/19/18 LUKAS BURGER MD Nov 26, 2019 10:14
--- NOTE | 2019-11-26 10:17 | PDOC3 ---
Discharge Summary Visit Information Date of Admission: Nov 24, 2019 Date of Discharge: Nov 26, 2019 Final Diagnosis Problems Medical Problems: (1) Elevated d-dimer Status: Acute (2) Hypomagnesemia Status: Acute Brief Hospital Course Allergies Allergies Coded Allergies Type Severity Reaction Last Updated Verified No Known Drug Allergies 08/18/14 No Vital Signs Vital Signs Date Time Temp Pulse Resp B/P (MAP) Pulse Ox O2 Delivery O2 Flow Rate FiO2 11/26/19 08:00 Room Air 11/26/19 07:20 98.1 65 174/80 (111) 98.1 11/25/19 15:27 96 Lab Results Laboratory Tests Test 11/25/19 07:45 11/26/19 03:15 White Blood Count 12.6 x10^3/uL (4.0-11.0) 8.4 x10^3/uL (4.0-11.0) Red Blood Count 4.35 x10^6/uL (4.30-5.70) 4.13 x10^6/uL (4.30-5.70) Hemoglobin 13.2 g/dL (13.0-17.5) 12.3 g/dL (13.0-17.5) Hematocrit 38.4 % (39.0-53.0) 36.5 % (39.0-53.0) Mean Corpuscular Volume 88 fL (79-100) 89 fL (79-100) Mean Corpuscular Hemoglobin 30 pg (25-35) 30 pg (25-35) Mean Corpuscular Hemoglobin Concent 34 g/dL (31-37) 34 g/dL (31-37) Red Cell Distribution Width 14.6 % (11.5-14.5) 14.3 % (11.5-14.5) Platelet Count 195 x10^3/uL (140-400) 178 x10^3/uL (140-400) Neutrophils (%) (Auto) 69 % (31-73) 63 % (31-73) Lymphocytes (%) (Auto) 18 % (24-48) 18 % (24-48) Monocytes (%) (Auto) 13 % (0-9) 17 % (0-9) Eosinophils (%) (Auto) 1 % (0-3) 2 % (0-3) Basophils (%) (Auto) 0 % (0-3) 0 % (0-3) Neutrophils # (Auto) 8.7 x10^3/uL (1.8-7.7) 5.3 x10^3/uL (1.8-7.7) Lymphocytes # (Auto) 2.2 x10^3/uL (1.0-4.8) 1.5 x10^3/uL (1.0-4.8) Monocytes # (Auto) 1.6 x10^3/uL (0.0-1.1) 1.4 x10^3/uL (0.0-1.1) Eosinophils # (Auto) 0.1 x10^3/uL (0.0-0.7) 0.2 x10^3/uL (0.0-0.7) Basophils # (Auto) 0.1 x10^3/uL (0.0-0.2) 0.0 x10^3/uL (0.0-0.2) Sodium Level 136 mmol/L (136-145) 137 mmol/L (136-145) Potassium Level 3.8 mmol/L (3.5-5.1) 3.7 mmol/L (3.5-5.1) Chloride Level 105 mmol/L (98-107) 105 mmol/L (98-107) Carbon Dioxide Level 20 mmol/L (21-32) 22 mmol/L (21-32) Anion Gap 11 (6-14) 10 (6-14) Blood Urea Nitrogen 25 mg/dL (8-26) 23 mg/dL (8-26) Creatinine 1.8 mg/dL (0.7-1.3) 1.5 mg/dL (0.7-1.3) Estimated GFR (Cockcroft-Gault) 35.7 44.1 Glucose Level 97 mg/dL (70-99) 87 mg/dL (70-99) Calcium Level 8.5 mg/dL (8.5-10.1) 8.4 mg/dL (8.5-10.1) Laboratory Tests Test 11/26/19 03:15 White Blood Count 8.4 x10^3/uL (4.0-11.0) Red Blood Count 4.13 x10^6/uL (4.30-5.70) Hemoglobin 12.3 g/dL (13.0-17.5) Hematocrit 36.5 % (39.0-53.0) Mean Corpuscular Volume 89 fL (79-100) Mean Corpuscular Hemoglobin 30 pg (25-35) Mean Corpuscular Hemoglobin Concent 34 g/dL (31-37) Red Cell Distribution Width 14.3 % (11.5-14.5) Platelet Count 178 x10^3/uL (140-400) Neutrophils (%) (Auto) 63 % (31-73) Lymphocytes (%) (Auto) 18 % (24-48) Monocytes (%) (Auto) 17 % (0-9) Eosinophils (%) (Auto) 2 % (0-3) Basophils (%) (Auto) 0 % (0-3) Neutrophils # (Auto) 5.3 x10^3/uL (1.8-7.7) Lymphocytes # (Auto) 1.5 x10^3/uL (1.0-4.8) Monocytes # (Auto) 1.4 x10^3/uL (0.0-1.1) Eosinophils # (Auto) 0.2 x10^3/uL (0.0-0.7) Basophils # (Auto) 0.0 x10^3/uL (0.0-0.2) Sodium Level 137 mmol/L (136-145) Potassium Level 3.7 mmol/L (3.5-5.1) Chloride Level 105 mmol/L (98-107) Carbon Dioxide Level 22 mmol/L (21-32) Anion Gap 10 (6-14) Blood Urea Nitrogen 23 mg/dL (8-26) Creatinine 1.5 mg/dL (0.7-1.3) Estimated GFR (Cockcroft-Gault) 44.1 Glucose Level 87 mg/dL (70-99) Calcium Level 8.4 mg/dL (8.5-10.1) Brief Hospital Course Mr. Allen is a 89 old male who presented with UTI, hypomagnesemia. Consults were placed to infectious disease. After discussion with family it was [facility] He was discharged with oral antibiotics to complete his treatment for urinary tract infection. He was COVID-19 negative. Discharge Information Condition at Discharge: Stable Disposition/Orders: D/C to Another Facility Scheduled Amoxicillin/Potassium Clav (Amox Tr-K Clv 875-125 Mg Tab) 1 Each Tablet, 1 TAB PO BID for UTI for 5 Days, #10 Prescribed by: LUKAS BURGER MD on 11/26/19 1006 Buspirone Hcl (Buspirone Hcl) 10 Mg Tablet, 10 MG PO BID for axiety, (Reported) Entered as Reported by: LEAH BELCHER RN on 11/24/19550 Last Taken: Unknown Dose on Unknown Date & Time Last Action: Continued on 11/24/191042 by LUKAS BURGER MD Finasteride (Finasteride) 5 Mg Tablet, 5 MG PO DAILY for bph for 30 Days, #30 Prescribed by: DANILO PAPPAS on 04/19/18 1304 Last Taken: Unknown Dose on Unknown Date & Time Last Action: Continued on 11/24/191042 by LUKAS BURGER MD Levothyroxine Sodium (Synthroid) 25 Mcg Tablet, 25 MCG PO DAILY06 for low thyroid for 30 Days, #30 Prescribed by: DANILO PAPPAS on 04/19/18 1304 Last Taken: Unknown Dose on Unknown Date & Time Last Action: Continued on 11/24/191042 by LUKAS BURGER MD Melatonin (Melatonin) 3 Mg Tab.rapdis, 3 MG PO QHS for sleep, (Reported) Entered as Reported by: LEAH BELCHER RN on 11/24/19550 Last Taken: Unknown Dose on Unknown Date & Time Last Action: Converted on 11/24/191042 by LUKAS BURGER MD Memantine Hcl (Namenda) 10 Mg Tablet, 1 TAB PO BID, #180 Ref 1 (Reported) Entered as Reported by: MARY LOU FLORIAN on 08/18/141815 Last Taken: Unknown Dose on Unknown Date & Time Last Action: Continued on 11/24/191042 by LUKAS BURGER MD Quetiapine Fumarate (Seroquel) 50 Mg Tablet, 50 MG PO BID for agitation, (Reported) Entered as Reported by: LEAH BELCHER RN on 11/24/19550 Last Taken: Unknown Dose on Unknown Date & Time Last Action: Converted on 11/24/191042 by LUKAS BURGER MD Sertraline Hcl (Sertraline Hcl) 50 Mg Tablet, 50 MG PO DAILY for ANTI- DEPRESSANT, Ref 0 (Reported) Entered as Reported by: JESE BACA on 11/24/19 1012 Last Taken: Unknown Dose on Unknown Date & Time Last Action: Continued on 11/24/19 104 by LUKAS BURGER MD Tamsulosin Hcl (Flomax) 0.4 Mg Cap.er.24h, 0.4 MG PO QHS, #30 Prescribed by: DANILO PAPPAS on 08/20/14 1124 Last Taken: Unknown Dose on Unknown Date & Time Last Action: Continued on 11/24/19 104 by LUKAS BURGER MD Discontinued Medications Cephalexin (Keflex) 500 Mg Capsule, 500 MG PO TID for 7 Days, #21 Prescribed by: DANILO MARIO D.O. on 05/14/18 0632 Last Action: HELD on 11/24/191042 by LUKAS BURGER MD Levofloxacin (Levofloxacin) 250 Mg Tablet, 250 MG PO DAILY06 for uti for 7 Days, #7 Prescribed by: DANILO PAPPAS on 04/19/18 1304 Last Action: HELD on 11/24/191042 by LUKAS BURGER MD Justicifation of Admission Dx: Justifications for Admission: Justification of Admission Dx: Yes LUKAS BURGER MD Nov 26, 2019 10:17
--- NOTE | 2019-11-26 10:49 | SNU/HH DC ---
DISCHARGE ORDERS DISCHARGE INFORMATION: FINAL DIAGNOSIS Problems Medical Problems: (1) Elevated d-dimer Status: Acute (2) Hypomagnesemia Status: Acute CONDITION ON DISCHARGE: Stable CODE STATUS: Code Status: DNR/DNI MCC: SNF STAY <30 DAYS: No HOSPICE: HOSPICE: Yes HOSPICE EVAL & TREAT: Yes LTAC: ADMIT TO LTAC: No POST DISCHARGE ORDERS: ACTIVITY ORDERS: Activity as tolerated WEIGHT BEARING STATUS: As tolerated DIET AFTER DISCHARGE: Regular WOUND/INCISION CARE: Other, see below TREATMENT/EQUIPMENT ORDERS: Physical Therapy For: Evalulation/Treatment Occupational Therapy For: Evaluation/Treatment DISCHARGE MEDICATIONS: Home Meds Active Scripts Amoxicillin/Potassium Clav (AMOX TR-K CLV 875-125 MG TAB) 1 Each Tablet, 1 TAB PO BID for UTI for 5 Days, #10 TAB Prov:LUKAS BURGER MD 11/26/19 Finasteride (FINASTERIDE) 5 Mg Tablet, 5 MG PO DAILY for bph for 30 Days, #30 TAB Prov:DANILO PAPPAS MD 04/19/18 Levothyroxine Sodium (SYNTHROID) 25 Mcg Tablet, 25 MCG PO DAILY06 for low thyroid for 30 Days, #30 TAB Prov:DANILO PAPPAS MD 04/19/18 Tamsulosin Hcl (FLOMAX) 0.4 Mg Cap.er.24h, 0.4 MG PO QHS, #30 TAB Prov:DANILO PAPPAS MD 08/20/14 Reported Medications Sertraline Hcl (SERTRALINE HCL) 50 Mg Tablet, 50 MG PO DAILY for ANTI- DEPRESSANT, TAB 0 Refills 11/24/19 Quetiapine Fumarate (SEROQUEL) 50 Mg Tablet, 50 MG PO BID for agitation, TAB 11/24/19 Melatonin (MELATONIN) 3 Mg Tab.rapdis, 3 MG PO QHS for sleep, TAB 11/24/19 Buspirone Hcl (BUSPIRONE HCL) 10 Mg Tablet, 10 MG PO BID for axiety, TAB 11/24/19 Memantine Hcl (NAMENDA) 10 Mg Tablet, 1 TAB PO BID, #180 TAB 1 Refill 08/18/14 Discontinued Scripts Cephalexin (KEFLEX) 500 Mg Capsule, 500 MG PO TID for 7 Days, #21 CAP Prov:DANILO MARIO DO 05/14/18 Levofloxacin (LEVOFLOXACIN) 250 Mg Tablet, 250 MG PO DAILY06 for uti for 7 Days, #7 TAB Prov:DANILO PAPPAS MD 04/19/18 LUKAS BURGER MD Nov 26, 2019 10:48
[2019-11-26 11:00] VITALS: BP 172/81
--- NOTE | 2019-11-26 12:56 | NUR ---
SW following. Spoke with RN and reviewed chat. Pt clear for discharge back to [facility] with hospice on oral abx (at request of facility [facility]) per Dr. Chahal. YONATAN phoned and faxed discharge orders to [facility], , (fax) and [facility], , (fax). Spoke with DON and they don't provide transportation. Spoke with son and he will pick pt up at 1300 and transfer him to the facility. Spoke with breaker machine tender and they will admit pt back on to hospice at 1400. Packet of clinicals ready to be sent with pt. RN to call report. No further SW needs at this time. Addendum: 11/26/19 at 1301 by LILY TAM COVID results came back negative today and this information was also sent to the facility.
--- NOTE | 2019-11-26 15:14 | NUR ---
Discharge Note: [facility] Discharge instructions and discharge home medications reviewed with Other facility and a copy given. All questions have been answered and understanding verbalized. The following instructions and handouts were given: transfer of care Discontinued lines and drains: 20 guage right wrist, tip intact. patient tolerated well. Patient discharged to [facility] with hospice via Son.
[2019-11-26] MEDS ORDERED: AMOXICILLIN/K CLAV 875/125MG TABLET. PO SCH (21:00)
== END 2019-11-26 15:45 | disposition hospice, inpatient (51) | DRG 871 ==
LOC: ER 23:00 → 6 SOUTH 11-24 04:47
PROVIDERS: ADMIT Internal Medicine; ATTEND Internal Medicine
DX: A41.50 Gram-negative sepsis, unspecified (principal); J18.9 Pneumonia, unspecified organism; N17.0 Acute kidney failure with tubular necrosis; N39.0 Urinary tract infection, site not specified; G30.9 Alzheimer's disease, unspecified; E03.9 Hypothyroidism, unspecified; F02.80 Dementia in other diseases classified elsewhere, unspecified severity, without behavioral disturbance, psychotic disturbance, mood disturbance, and anxiety; N40.0 Benign prostatic hyperplasia without lower urinary tract symptoms; Z20.828 Contact with and (suspected) exposure to other viral communicable diseases; I49.5 Sick sinus syndrome; E83.42 Hypomagnesemia; N18.9 Chronic kidney disease, unspecified; Z79.899 Other long term (current) drug therapy; Z85.038 Personal history of other malignant neoplasm of large intestine; Z87.440 Personal history of urinary (tract) infections; Z95.0 Presence of cardiac pacemaker
CPT/HCPCS: 36415; 51702; 71045; 80048; 80053; 81001; 82553; 82728; 83605; 83615; 83735; 83880; 84484; 85007; 85025; 85379; 85610; 85730; 87040; 87077; 87086; 87186; 87205; 93005; 96365; 96367; 99291; J0692; J2060; J2543; J3475; J7030; G0378; U0003-CS